=== PATIENT | female | born 1945 | race Hispanic/Latino ===

== ENCOUNTER 2020-01-12 11:15 | Emergency (ER) | payer MEDICARE, OTHER ==
[~2020-01-12] VITALS: Ht 154.9 cm; Wt 71.7 kg
--- NOTE | 2020-01-12 11:31 | NUR ---
PAMELA LUCERO E[employer] OPPORTUNITY SPECIALIST WILL DISCHARGE WITH DERMATOLOGY REFERRAL.
== END 2020-01-12 11:59 | disposition home or self-care (01) ==
LOC: ER 11:15
DX: R59.1 Generalized enlarged lymph nodes (principal); I10 Essential (primary) hypertension
CPT/HCPCS: 99281

== ENCOUNTER 2021-03-24 09:03 | Inpatient (IN) | payer MEDICARE, OTHER ==
[2021-03-24] VITALS (8 sets, daily range): BP systolic 77–99; BP diastolic 56–67
[~2021-03-24] VITALS: Ht 154.9 cm; Wt 58.5 kg
[2021-03-24] MEDS ORDERED: SODIUM CHLORIDE 0.9% 1000ML 1,000 ML IV STA ×2 (09:32→10:15)
[2021-03-24 09:40] LABS: BASOPHILS # (AUTO) 0.1 (0.0-0.1); BASOPHILS % 0.5 % (0.0-1.0); EOSINOPHILS % 0.1 % (0.0-6.0); HEMATOCRIT 26.4 % (34.2-44.1); HEMOGLOBIN 8.8 g/dL (12.0-16.0); LYMPHOCYTES # (AUTO) 0.6 (1.0-3.2); MEAN CORPUSCULAR HEMOGLOBIN 29.6 pg (28-32); MEAN CORPUSCULAR HGB CONC 33.3 g/dL (31-35); MEAN CORPUSCULAR VOLUME 88.9 fL (81-99); MONOCYTES # (AUTO) 0.4 (0.2-0.8); MONOCYTES % 1.9 % (4.4-11.3); NEUTROPHILS # (AUTO) 19.3 (2.1-6.9); NEUTROPHILS % 94.2 % (38.7-80.0); PLATELET COUNT 539 x10e3/uL (140-360); RED BLOOD COUNT 2.97 x10e6/uL (3.6-5.1); RED CELL DISTRIBUTION WIDTH 14.6 % (11.7-14.4)
[2021-03-24 09:53] LABS: INR 1.08; PROTHROMBIN TIME 14.6 seconds (11.9-14.5)
[2021-03-24 09:54] LABS: PARTIAL THROMBOPLASTIN TIME 37.4 seconds (23.8-35.5)
[2021-03-24] MEDS ORDERED: MEROPENEM 1GM 100 ML IV ONE (10:00)
[2021-03-24 10:06] LABS: ALBUMIN 1.3 g/dL (3.5-5.0); ALBUMIN/GLOBULIN RATIO 0.2 (0.8-2.0); ANION GAP 23.6 mmol/L (8-16); CALCIUM 7.4 mg/dL (8.4-10.2); CREATININE, SERUM 1.32 mg/dL (0.57-1.11); POTASSIUM 3.6 mmol/L (3.5-5.1)
[2021-03-24 10:07] LABS: B-TYPE NATRIURETIC PEPTIDE2 182.7 pg/mL (0-100)
[2021-03-24] MEDS ORDERED: DEXTROSE 50% SYRINGE 50 ML IV STA (10:08)
[2021-03-24 10:15] LABS: CREATINE KINASE MB 0.7 ng/mL (0-5.0)
[2021-03-24 10:36] LABS: CLARITY,URINE CLOUDY (CLEAR); COLOR,URINE YELLOW (YELLOW)
[2021-03-24 10:37] LABS: KETONES,URINE NEGATIVE (NEGATIVE); LEUKOCYTE ESTERASE ,URINE NEGATIVE (NEGATIVE); NITRITE,URINE NEGATIVE (NEGATIVE); PROTEIN,URINE DIPSTICK NEGATIVE (NEGATIVE); URINE UROBILINOGEN 0.2 mg/dL (0.2 - 1)
[2021-03-24 10:47] LABS: BAND NEUTROPHILS % (MANUAL) 3 %; LYMPHOCYTES % (MANUAL) 4 % (19-48)
[2021-03-24 10:48] LABS: BLAST CELLS % MANUAL 1; NEUTROPHILS % (MANUAL) 92 % (40-74)
[2021-03-24 10:49] LABS: HYPERSEGMENTED NEUTROPHILS FEW; RBC MORPHOLOGY COMMENT ABNORMAL
[2021-03-24 10:50] LABS: PLATELET ESTIMATE SLIGHTLY INCREASED; PLATELET MORPHOLOGY COMMENT PLATELET SATELITE
[2021-03-24 10:51] LABS: MICROCYTOSIS SLIG; POIKILOCYTOSIS SLIGHT
[2021-03-24 10:53] LABS: ANISOCYTOSIS SLIG
[2021-03-24 10:57] LABS: BACTERIA,URINE MANY /HPF; WBC,URINE (MAN) 21-50 /HPF (0-5)
[2021-03-24 10:58] LABS: EPITHELIAL CELLS,URINE MODERATE /LPF; MUCUS,URINE MANY (RARE)
[2021-03-24] MEDS ORDERED: IOPAMIDOL 370 MG/ML 200 ML INFUS..BTL INJ ONE (11:14)
[2021-03-24] MEDS ORDERED: SODIUM CHLORIDE 0.9% 50ML 50 ML ONE (11:14)
[2021-03-24] MEDS: SODIUM CHLORIDE 0.9% 1000ML 1,000 ML IV SCH ×2 (12:26→12:40)
[2021-03-24] MEDS ORDERED: ONDANSETRON HCL INJ 2MG/ML 2ML 2 MG/ML VIAL IV PRN ×2 (12:30→13:15)
[2021-03-24] MEDS ORDERED: SODIUM CHLORIDE 0.9% 1000ML 1,000 ML IV SCH ×2 (12:30→12:45)
[2021-03-24] MEDS ORDERED: IBUPROFEN200 MG PO (12:51)
[2021-03-24] MEDS ORDERED: TYLENOL EXTRA500 MG PO (12:51)
[2021-03-24] MEDS ORDERED: PLAQUENIL200 MG PO (12:51)
[2021-03-24] MEDS ORDERED: GABAPENTIN100 MG PO (12:51)
[2021-03-24] MEDS ORDERED: METHYLPREDNISOLO4 M1 PO (12:51)
[2021-03-24] MEDS ORDERED: ZESTRIL10 MG PO (12:51)
[2021-03-24] MEDS ORDERED: ASPIRIN81 MG PO (12:51)
[2021-03-24] MEDS ORDERED: CLONIDINE HCL0.1 MG PO (12:52)
[2021-03-24] MEDS ORDERED: ETOMIDATE 2 MG/ML 10 ML INJ IV ONE (12:59)
[2021-03-24] MEDS ORDERED: SEVOFLURANE INHAL SOLN 250 ML PEN BTL ONE (12:59)
[2021-03-24] MEDS ORDERED: POVIDONE IODINE 0.05% 0.05 % ML PO ONE (12:59)
[2021-03-24] MEDS ORDERED: EPHEDRINE SULFATE INJ 50 MG/ML VIAL ONE (12:59)
[2021-03-24] MEDS ORDERED: SUCCINYLCHOLINE CHLORIDE 20 MG/ML 10ML VIAL ONE (12:59)
[2021-03-24] MEDS ORDERED: ROCURONIUM BROMIDE 10 MG/ML 5ML VIAL IV ONE (12:59)
[2021-03-24] MEDS ORDERED: VECURONIUM BROMIDE FOR INJ 20 MG VIAL ONE (13:03)
[2021-03-24] MEDS ORDERED: WATER STERILE 10 ML VIAL ONE (13:03)
[2021-03-24] MEDS ORDERED: MIDAZOLAM HCL 2 MG/2 ML VIAL ONE (13:03)
[2021-03-24] MEDS ORDERED: ACETAMINOPHEN 325 MG TAB PO PRN (13:15)
[2021-03-24] MEDS: MEROPENEM 1GM 100 ML IV SCH ×3 (13:15→23:58)
[2021-03-24] MEDS ORDERED: DOCUSATE SODIUM 100 MG CAP PO PRN (13:15)
[2021-03-24] MEDS ORDERED: LIDOCAINE 4% PATCH TP PRN (13:15)
[2021-03-24] MEDS ORDERED: DEXTROSE 50% SYRINGE 50 ML IV PRN ×2 (13:15→13:45)
[2021-03-24] MEDS ORDERED: SODIUM BICARBONATE 8.4% INJ 50 ML SYR IV STA ×2 (13:16→13:21)
[2021-03-24] MEDS ORDERED: DEXTROSE 50% SYRINGE 50 ML IV ONE (13:30)
[2021-03-24] MEDS ORDERED: HYDRALAZINE HCL 20 MG/ML VIAL IV PRN (13:45)
[2021-03-24] MEDS ORDERED: SODIUM BICARBONATE 8.4% 150 ML in DEXTROSE 5% 1,000 ML IV ONE (14:00)
[2021-03-24] MEDS ORDERED: SODIUM CHLORIDE 0.9% 250ML 250 ML IV ONE (14:00)
[2021-03-24] MEDS ORDERED: METRONIDAZOLE 500MG/NS 100ML 100 ML IV SCH (14:00)
[2021-03-24 15:05] LABS: BASOPHILS % 0.2 % (0.0-1.0); LYMPHOCYTES # (AUTO) 0.5 (1.0-3.2); LYMPHOCYTES % 3.3 % (18.0-39.1); MEAN CORPUSCULAR HEMOGLOBIN 29.3 pg (28-32); MEAN CORPUSCULAR HGB CONC 32.4 g/dL (31-35); MEAN CORPUSCULAR VOLUME 90.6 fL (81-99); MONOCYTES # (AUTO) 0.4 (0.2-0.8); MONOCYTES % 2.2 % (4.4-11.3); NEUTROPHILS # (AUTO) 15.6 (2.1-6.9); NEUTROPHILS % 93.9 % (38.7-80.0); PLATELET COUNT 368 x10e3/uL (140-360); RED BLOOD COUNT 1.91 x10e6/uL (3.6-5.1); RED CELL DISTRIBUTION WIDTH 14.5 % (11.7-14.4)
[2021-03-24 15:10] LABS: HEMATOCRIT 17.3 % (34.2-44.1); HEMOGLOBIN 5.6 g/dL (12.0-16.0)
[2021-03-24] MEDS ORDERED: MORPHINE SULFATE INJ 4 MG/ML INJ 1ML IV PRN (15:15)
[2021-03-24 15:37] LABS: ANISOCYTOSIS SLIGHT; BAND NEUTROPHILS % (MANUAL) 27 %; LYMPHOCYTES % (MANUAL) 5 % (19-48); METAMYELOCYTES % (MANUAL) 2 % (0-0); MONOCYTES % (MANUAL) 7 % (3.4-9.0); MYELOCYTES % (MANUAL) 2 % (0-0); NEUTROPHILS % (MANUAL) 57 % (40-74)
[2021-03-24 15:38] LABS: PLATELET ESTIMATE ADEQUATE; PLATELET MORPHOLOGY COMMENT NORMAL
[2021-03-24 15:56] LABS: BASOPHILS # (AUTO) 0.1 (0.0-0.1); BASOPHILS % 0.4 % (0.0-1.0); HEMATOCRIT 23.6 % (34.2-44.1); HEMOGLOBIN 7.4 g/dL (12.0-16.0); LYMPHOCYTES # (AUTO) 0.7 (1.0-3.2); LYMPHOCYTES % 3.2 % (18.0-39.1); MEAN CORPUSCULAR HGB CONC 31.4 g/dL (31-35); MEAN CORPUSCULAR VOLUME 92.5 fL (81-99); MONOCYTES # (AUTO) 0.5 (0.2-0.8); MONOCYTES % 2.3 % (4.4-11.3); NEUTROPHILS # (AUTO) 19.9 (2.1-6.9); NEUTROPHILS % 93.5 % (38.7-80.0); PLATELET COUNT 385 x10e3/uL (140-360); RED BLOOD COUNT 2.55 x10e6/uL (3.6-5.1); RED CELL DISTRIBUTION WIDTH 15.3 % (11.7-14.4)
[2021-03-24] MEDS: INSULIN REGULAR, HUMAN 100 UNIT/1 ML 3ML VIAL SQ SCH ×2 (16:30→20:01)
[2021-03-24] MEDS ORDERED: SODIUM CHLORIDE 0.9% 500ML 500 ML ONE ×2 (16:35→22:35)
[2021-03-24] MEDS: SODIUM BICARBONATE 8.4% 150 ML in DEXTROSE 5% 1,000 ML IV SCH (17:17)
[2021-03-24 17:45] LABS: BAND NEUTROPHILS % (MANUAL) 35 %; LYMPHOCYTES % (MANUAL) 6 % (19-48); METAMYELOCYTES % (MANUAL) 1 % (0-0); MONOCYTES % (MANUAL) 2 % (3.4-9.0); NEUTROPHILS % (MANUAL) 56 % (40-74)
[2021-03-24 17:47] LABS: PLATELET ESTIMATE ADEQUATE; PLATELET MORPHOLOGY COMMENT NORMAL; RBC MORPHOLOGY COMMENT NORMAL
[2021-03-24 17:55] LABS: TOXIC GRANULATION SLIGHT; VACUOLE,WBC SLIGHT
[2021-03-24] MEDS: SODIUM CHLORIDE 0.9% 250ML IRRIG IR SCH ×2 (18:02→19:58)
[2021-03-24] MEDS: PANTOPRAZOLE 40 MG 10ML VIAL IV SCH (18:33)
[2021-03-24] MEDS: NOREPINEPHRINE INJ 4MG/4ML 8 MG in DEXTROSE 5% 250ML 250 ML IV SCH (18:34)
[2021-03-24] MEDS: METRONIDAZOLE 500MG/NS 100ML 100 ML IV SCH (18:34)
[2021-03-24] MEDS ORDERED: NOREPINEPHRINE 8 MG/D5W 250 ML 250 ML ONE (18:39)
[2021-03-24] MEDS ORDERED: MEROPENEM 1 GM VIAL ONE (22:36)
[2021-03-24] MEDS ORDERED: SODIUM CHLORIDE 0.9% 100 ML ONE (22:38)
[2021-03-24] MEDS ORDERED: MEROPENEM 1GM 100 ML IV SCH (23:00)
[2021-03-25] VITALS (19 sets, daily range): BP systolic 72–158; BP diastolic 35–117
[2021-03-25] MEDS: SODIUM CHLORIDE 0.9% 250ML IRRIG IR SCH ×7 (00:07→23:45)
[2021-03-25] MEDS: SODIUM BICARBONATE 8.4% 150 ML in DEXTROSE 5% 1,000 ML IV SCH ×2 (01:39→09:29)
[2021-03-25] MEDS: METRONIDAZOLE 500MG/NS 100ML 100 ML IV SCH ×3 (01:39→17:21)
[2021-03-25 02:12] LABS: CREATINE KINASE MB 2.2 ng/mL (0-5.0)
[2021-03-25] MEDS ORDERED: VASOPRESSIN 60 UNIT in DEXTROSE 5% 50ML 57 ML IV STA (05:11)
[2021-03-25 05:40] LABS: ABG HCO3 22 mmol/L (22-26); ABG PCO2 57 mmHg (35-45); ABG PO2 102 mmHg (80-105); ABG TCO2 24
[2021-03-25 05:55] LABS: BASOPHILS % 0.1 % (0.0-1.0); HEMOGLOBIN 11.9 g/dL (12.0-16.0); LYMPHOCYTES # (AUTO) 0.6 (1.0-3.2); LYMPHOCYTES % 1.5 % (18.0-39.1); MEAN CORPUSCULAR HEMOGLOBIN 28.1 pg (28-32); MEAN CORPUSCULAR HGB CONC 32.2 g/dL (31-35); MEAN CORPUSCULAR VOLUME 87.5 fL (81-99); MONOCYTES # (AUTO) 0.5 (0.2-0.8); MONOCYTES % 1.2 % (4.4-11.3); NEUTROPHILS # (AUTO) 35.2 (2.1-6.9); NEUTROPHILS % 94.8 % (38.7-80.0); PLATELET COUNT 516 x10e3/uL (140-360); RED BLOOD COUNT 4.23 x10e6/uL (3.6-5.1); RED CELL DISTRIBUTION WIDTH 18.1 % (11.7-14.4)
[2021-03-25] MEDS ORDERED: MIDAZOLAM HCL 2 MG/2 ML VIAL IV PRN (06:30)
[2021-03-25] MEDS ORDERED: FENTANYL CITRATE/PF 100MCG/2 ML INJ IV PRN (06:30)
[2021-03-25] MEDS ORDERED: FUROSEMIDE INJ 10 MG/ML 4 ML VIAL IV ONE ×2 (06:45→13:30)
[2021-03-25 06:52] LABS: ALBUMIN/GLOBULIN RATIO 0.2 (0.8-2.0); ANION GAP 18.3 mmol/L (8-16); CREATININE, SERUM 1.36 mg/dL (0.57-1.11); POTASSIUM 3.3 mmol/L (3.5-5.1)
[2021-03-25 06:55] LABS: CALCIUM 6.3 mg/dL (8.4-10.2)
[2021-03-25] MEDS ORDERED: SODIUM CHLORIDE 0.9% 1000ML 1,000 ML IV ONE ×2 (07:15)
[2021-03-25] MEDS ORDERED: NALOXONE HCL INJ 0.4 MG/ML AMP IV ONE (07:15)
[2021-03-25] MEDS ORDERED: SODIUM CHLORIDE 0.9% 1000ML 1,000 ML ONE (07:19)
[2021-03-25] MEDS ORDERED: NALOXONE HCL INJ 0.4 MG/ML AMP ONE (07:22)
[2021-03-25] MEDS ORDERED: NALOXONE HCL 2MG/2 ML SYRINGE ONE (07:23)
[2021-03-25] MEDS ORDERED: CALCIUM CHLORIDE 10% 1.36 MEQ/ML 10ML SYR IV STA (07:25)
[2021-03-25] MEDS ORDERED: SODIUM CHLORIDE 0.9% 1000ML 1,000 ML IV SCH ×2 (07:30→08:30)
[2021-03-25] MEDS ORDERED: PANTOPRAZOLE SOD 40 MG TABEC PO SCH (07:30)
[2021-03-25] MEDS ORDERED: POTASSIUM CHLORIDE 10MEQ/100ML 100 ML IV ONE (07:30)
[2021-03-25] MEDS: INSULIN REGULAR, HUMAN 100 UNIT/1 ML 3ML VIAL SQ SCH ×4 (07:30→20:49)
[2021-03-25 07:47] LABS: ABG HCO3 18 mmol/L (22-26); ABG PCO2 35 mmHg (35-45); ABG PH 7.33 (7.35-7.45); ABG PO2 344 mmHg (80-105)
[2021-03-25 07:48] LABS: ABG TCO2 19
[2021-03-25 08:26] LABS: ANION GAP 18.3 mmol/L (8-16); CREATININE, SERUM 1.34 mg/dL (0.57-1.11); MAGNESIUM 1.7 MG/DL (1.3-2.1); PHOSPHORUS 6.4 MG/DL (2.3-4.7); POTASSIUM 3.3 mmol/L (3.5-5.1)
[2021-03-25 08:33] LABS: CREATINE KINASE MB 2.1 ng/mL (0-5.0)
[2021-03-25 08:44] LABS: THYROID STIMULATING HORMONE 1.728 uIU/mL (0.350-4.940)
[2021-03-25 08:53] LABS: CALCIUM 6.3 mg/dL (8.4-10.2)
[2021-03-25] MEDS: PANTOPRAZOLE 40 MG 10ML VIAL IV SCH ×2 (09:29→17:21)
[2021-03-25] MEDS ORDERED: POTASSIUM CHLORIDE 10MEQ/100ML 100 ML ONE (09:43)
[2021-03-25] MEDS ORDERED: METOPROLOL TARTRATE INJ 1 MG/ML VIAL ONE (10:22)
[2021-03-25] MEDS ORDERED: AMIODARONE 900MG 0 ML IV ONE (10:51)
[2021-03-25] MEDS ORDERED: AMIODARONE HCL 100 ML IV ONE (10:51)
[2021-03-25] MEDS ORDERED: AMIODARONE 900MG 500 ML IV ONE (10:51)
[2021-03-25] MEDS ORDERED: METOPROLOL TARTRATE INJ 1 MG/ML VIAL IV ONE ×2 (11:00)
[2021-03-25] MEDS ORDERED: AMIODARONE HCL 150 MG/100 ML BAG IV ONE (11:00)
[2021-03-25] MEDS: AMIODARONE 900MG 500 ML IV SCH (11:16)
[2021-03-25] MEDS ORDERED: METOPROLOL TARTRATE INJ 1 MG/ML VIAL IV PRN (11:30)
[2021-03-25] MEDS ORDERED: HYDROCORTISONE SOD SUCCINATE 100 MG VIAL IV SCH (12:00)
[2021-03-25 12:09] LABS: BAND NEUTROPHILS % (MANUAL) 21 %; LYMPHOCYTES % (MANUAL) 2 % (19-48); METAMYELOCYTES % (MANUAL) 12 % (0-0); MONOCYTES % (MANUAL) 3 % (3.4-9.0); MYELOCYTES % (MANUAL) 11 % (0-0); NEUTROPHILS % (MANUAL) 51 % (40-74)
[2021-03-25 12:12] LABS: PLATELET ESTIMATE MARKEDLY INCREASED; PLATELET MORPHOLOGY COMMENT FEW LARGE
[2021-03-25 12:14] LABS: RBC MORPHOLOGY COMMENT NORMAL; TOXIC GRANULATION MODERATE
[2021-03-25] MEDS: HYDROCORTISONE SOD SUCCINATE 100 MG VIAL IV SCH ×2 (14:00→22:45)
[2021-03-25 15:15] LABS: HEMATOCRIT 34.3 % (34.2-44.1); HEMOGLOBIN 11.5 g/dL (12.0-16.0)
[2021-03-25 15:21] LABS: ABG PCO2 25 mmHg (35-45); ABG PH 7.32 (7.35-7.45)
[2021-03-25 15:22] LABS: ABG HCO3 13 mmol/L (22-26); ABG PO2 125 mmHg (80-105); ABG TCO2 13
[2021-03-25 15:38] LABS: ANION GAP 22.9 mmol/L (8-16); CREATININE, SERUM 1.44 mg/dL (0.57-1.11); POTASSIUM 3.9 mmol/L (3.5-5.1)
[2021-03-25 15:56] LABS: CALCIUM 6.6 mg/dL (8.4-10.2)
[2021-03-25] MEDS ORDERED: VASOPRESSIN 60 UNIT in DEXTROSE 5% 50ML 57 ML IV PRN (16:00)
[2021-03-25] MEDS ORDERED: CALCIUM CHLORIDE 13.6 MEQ in SODIUM CHLORIDE 0.9% 100 ML 100 ML IV ONE (17:00)
[2021-03-25] MEDS: NOREPINEPHRINE INJ 4MG/4ML 8 MG in DEXTROSE 5% 250ML 250 ML IV SCH (17:22)
[2021-03-25] MEDS: MEROPENEM 500MG 500 MG in SODIUM CHLORIDE 0.9% 50ML 50 ML IV SCH (19:29)
[2021-03-25] MEDS: CENTRAL TPN FORMULA 1 BAG IV SCH (20:48)
[2021-03-26] VITALS (26 sets, daily range): BP systolic 87–140; BP diastolic 58–80
[2021-03-26] MEDS: METRONIDAZOLE 500MG/NS 100ML 100 ML IV SCH ×3 (01:42→17:54)
[2021-03-26] MEDS: SODIUM CHLORIDE 0.9% 250ML IRRIG IR SCH ×6 (03:44→23:15)
[2021-03-26 05:38] LABS: BASOPHILS % 0.1 % (0.0-1.0); HEMATOCRIT 30.7 % (34.2-44.1); HEMOGLOBIN 10.6 g/dL (12.0-16.0); LYMPHOCYTES # (AUTO) 0.6 (1.0-3.2); LYMPHOCYTES % 1.6 % (18.0-39.1); MEAN CORPUSCULAR HEMOGLOBIN 28.5 pg (28-32); MEAN CORPUSCULAR HGB CONC 34.5 g/dL (31-35); MEAN CORPUSCULAR VOLUME 82.5 fL (81-99); MONOCYTES # (AUTO) 0.3 (0.2-0.8); MONOCYTES % 0.8 % (4.4-11.3); NEUTROPHILS # (AUTO) 37.1 (2.1-6.9); NEUTROPHILS % 94.4 % (38.7-80.0); PLATELET COUNT 330 x10e3/uL (140-360); RED BLOOD COUNT 3.72 x10e6/uL (3.6-5.1); RED CELL DISTRIBUTION WIDTH 17.7 % (11.7-14.4)
[2021-03-26] MEDS: HYDROCORTISONE SOD SUCCINATE 100 MG VIAL IV SCH ×3 (05:51→22:09)
[2021-03-26 06:05] LABS: ALBUMIN 0.8 g/dL (3.5-5.0); ALBUMIN/GLOBULIN RATIO 0.2 (0.8-2.0); ANION GAP 20.6 mmol/L (8-16); CREATININE, SERUM 1.51 mg/dL (0.57-1.11); MAGNESIUM 1.8 MG/DL (1.3-2.1); POTASSIUM 3.6 mmol/L (3.5-5.1)
[2021-03-26 06:08] LABS: CALCIUM 6.6 mg/dL (8.4-10.2)
[2021-03-26] MEDS: INSULIN REGULAR, HUMAN 100 UNIT/1 ML 3ML VIAL SQ SCH ×4 (07:30→22:09)
[2021-03-26 08:02] LABS: BAND NEUTROPHILS % (MANUAL) 3 %; LYMPHOCYTES % (MANUAL) 2 % (19-48); MONOCYTES % (MANUAL) 1 % (3.4-9.0); NEUTROPHILS % (MANUAL) 93 % (40-74)
[2021-03-26 08:03] LABS: ANISOCYTOSIS SLIGHT; PLATELET ESTIMATE ADEQUATE; PLATELET MORPHOLOGY COMMENT FEW LARGE; RBC MORPHOLOGY COMMENT NORMAL
[2021-03-26] MEDS: PANTOPRAZOLE 40 MG 10ML VIAL IV SCH ×2 (08:58→17:17)
[2021-03-26] MEDS: PROPOFOL IV EMULSION 10MG/ML 100 ML IV PRN (11:26)
[2021-03-26 12:36] LABS: ABG HCO3 18 mmol/L (22-26); ABG PCO2 33 mmHg (35-45); ABG PH 7.34 (7.35-7.45); ABG PO2 130 mmHg (80-105); ABG TCO2 19
[2021-03-26] MEDS: AMIODARONE 900MG 500 ML IV SCH (14:02)
[2021-03-26] MEDS: NOREPINEPHRINE INJ 4MG/4ML 8 MG in DEXTROSE 5% 250ML 250 ML IV SCH (14:17)
[2021-03-26] MEDS ORDERED: MAGNESIUM SULF 1GRAM/DEXTROSE 100 ML IV ONE (14:35)
[2021-03-26] MEDS ORDERED: FUROSEMIDE INJ 10 MG/ML 4 ML VIAL IV ONE (14:45)
[2021-03-26] MEDS ORDERED: CALCIUM CHLORIDE 13.6 MEQ in SODIUM CHLORIDE 0.9% 100 ML 100 ML IV ONE ×2 (15:00→16:00)
[2021-03-26] MEDS: FUROSEMIDE INJ 100 MG in SODIUM CHLORIDE 0.9% 100 ML 90 ML IV SCH (15:01)
[2021-03-26] MEDS: MEROPENEM 500MG 500 MG in SODIUM CHLORIDE 0.9% 50ML 50 ML IV SCH (17:17)
[2021-03-26 17:58] LABS: ANION GAP 18.1 mmol/L (8-16); CREATININE, SERUM 1.51 mg/dL (0.57-1.11); POTASSIUM 4.1 mmol/L (3.5-5.1)
[2021-03-26 18:02] LABS: CALCIUM 6.4 mg/dL (8.4-10.2)
[2021-03-26] MEDS ORDERED: CALCIUM GLUCONATE 10% INJ 9.3 MEQ in SODIUM CHLORIDE 0.9% 100 ML 100 ML IV ONE (18:45)
[2021-03-26] MEDS: CENTRAL TPN FORMULA 1 BAG IV SCH (20:30)
[2021-03-27] VITALS (26 sets, daily range): BP systolic 74–130; BP diastolic 52–75
[2021-03-27] MEDS: METRONIDAZOLE 500MG/NS 100ML 100 ML IV SCH ×2 (02:03→09:30)
[2021-03-27] MEDS: SODIUM CHLORIDE 0.9% 250ML IRRIG IR SCH ×6 (03:15→23:27)
[2021-03-27 06:10] LABS: ALBUMIN 0.8 g/dL (3.5-5.0); ALBUMIN/GLOBULIN RATIO 0.2 (0.8-2.0); ANION GAP 16.8 mmol/L (8-16); CREATININE, SERUM 1.49 mg/dL (0.57-1.11); POTASSIUM 3.8 mmol/L (3.5-5.1)
[2021-03-27 06:15] LABS: CALCIUM 6.7 mg/dL (8.4-10.2)
[2021-03-27] MEDS: HYDROCORTISONE SOD SUCCINATE 100 MG VIAL IV SCH ×3 (06:20→21:12)
[2021-03-27 06:28] LABS: BASOPHILS # (AUTO) 0.2 (0.0-0.1); BASOPHILS % 0.6 % (0.0-1.0); HEMATOCRIT 26.6 % (34.2-44.1); LYMPHOCYTES # (AUTO) 0.6 (1.0-3.2); LYMPHOCYTES % 2.2 % (18.0-39.1); MEAN CORPUSCULAR HGB CONC 33.5 g/dL (31-35); MEAN CORPUSCULAR VOLUME 83.6 fL (81-99); MONOCYTES # (AUTO) 0.7 (0.2-0.8); MONOCYTES % 2.7 % (4.4-11.3); NEUTROPHILS # (AUTO) 24.9 (2.1-6.9); NEUTROPHILS % 91.9 % (38.7-80.0); RED BLOOD COUNT 3.18 x10e6/uL (3.6-5.1); RED CELL DISTRIBUTION WIDTH 17.8 % (11.7-14.4)
[2021-03-27 06:38] LABS: HEMOGLOBIN 8.9 g/dL (12.0-16.0); PLATELET COUNT 184 x10e3/uL (140-360)
[2021-03-27 07:29] LABS: BAND NEUTROPHILS % (MANUAL) 3 %; LYMPHOCYTES % (MANUAL) 2 % (19-48); NEUTROPHILS % (MANUAL) 95 % (40-74)
[2021-03-27 07:30] LABS: ANISOCYTOSIS SLIGHT; PLATELET ESTIMATE ADEQUATE; PLATELET MORPHOLOGY COMMENT NORMAL; RBC MORPHOLOGY COMMENT NORMAL; TOXIC GRANULATION SLIGHT
[2021-03-27] MEDS: INSULIN REGULAR, HUMAN 100 UNIT/1 ML 3ML VIAL SQ SCH ×4 (07:58→22:40)
[2021-03-27] MEDS: PANTOPRAZOLE 40 MG 10ML VIAL IV SCH ×2 (08:45→17:00)
[2021-03-27 11:20] LABS: ABG HCO3 19 mmol/L (22-26); ABG PCO2 41 mmHg (35-45); ABG PH 7.37 (7.35-7.45); ABG PO2 112 mmHg (80-105); ABG TCO2 20
[2021-03-27] MEDS: FUROSEMIDE INJ 100 MG in SODIUM CHLORIDE 0.9% 100 ML 90 ML IV SCH (11:23)
[2021-03-27] MEDS ORDERED: VANCOMYCIN 750MG/NS 150ML IVPB 150 ML IV SCH (12:00)
[2021-03-27] MEDS ORDERED: CALCIUM GLUCONATE 10% INJ 13.95 MEQ in SODIUM CHLORIDE 0.9% 100 ML 100 ML IV ONE (13:00)
[2021-03-27] MEDS: CENTRAL TPN FORMULA 1 BAG IV SCH (20:19)
[2021-03-27] MEDS: PIPERACILLIN/TAZOBAC 3.375 GM in SODIUM CHLORIDE 0.9% 50ML 50 ML IV SCH (21:12)
[2021-03-27] MEDS: AMIODARONE 900MG 500 ML IV SCH (21:12)
[2021-03-27] MEDS ORDERED: PIPER-TAZ 3.375 GM 50 ML IV SCH (22:00)
[2021-03-28] VITALS (26 sets, daily range): BP systolic 97–145; BP diastolic 57–78
[2021-03-28] MEDS: FUROSEMIDE INJ 100 MG in SODIUM CHLORIDE 0.9% 100 ML 90 ML IV SCH (00:19)
[2021-03-28] MEDS: SODIUM CHLORIDE 0.9% 250ML IRRIG IR SCH ×6 (04:06→23:15)
[2021-03-28] MEDS: HYDROCORTISONE SOD SUCCINATE 100 MG VIAL IV SCH ×2 (05:15→20:27)
[2021-03-28] MEDS: PIPERACILLIN/TAZOBAC 3.375 GM in SODIUM CHLORIDE 0.9% 50ML 50 ML IV SCH ×3 (05:15→22:00)
[2021-03-28 06:28] LABS: BASOPHILS % 0.1 % (0.0-1.0); HEMATOCRIT 28.1 % (34.2-44.1); HEMOGLOBIN 9.4 g/dL (12.0-16.0); LYMPHOCYTES # (AUTO) 0.4 (1.0-3.2); LYMPHOCYTES % 2.1 % (18.0-39.1); MEAN CORPUSCULAR HEMOGLOBIN 27.8 pg (28-32); MEAN CORPUSCULAR HGB CONC 33.5 g/dL (31-35); MEAN CORPUSCULAR VOLUME 83.1 fL (81-99); MONOCYTES # (AUTO) 0.9 (0.2-0.8); MONOCYTES % 4.1 % (4.4-11.3); NEUTROPHILS % 91.3 % (38.7-80.0); PLATELET COUNT 132 x10e3/uL (140-360); RED BLOOD COUNT 3.38 x10e6/uL (3.6-5.1); RED CELL DISTRIBUTION WIDTH 18.1 % (11.7-14.4)
[2021-03-28 06:58] LABS: ALBUMIN 0.9 g/dL (3.5-5.0); ALBUMIN/GLOBULIN RATIO 0.2 (0.8-2.0); ANION GAP 16.6 mmol/L (8-16); CREATININE, SERUM 1.37 mg/dL (0.57-1.11); POTASSIUM 3.6 mmol/L (3.5-5.1)
[2021-03-28 07:20] LABS: MAGNESIUM 2.7 MG/DL (1.3-2.1); PHOSPHORUS 4.8 MG/DL (2.3-4.7)
[2021-03-28] MEDS: INSULIN REGULAR, HUMAN 100 UNIT/1 ML 3ML VIAL SQ SCH ×4 (07:59→20:37)
[2021-03-28 08:38] LABS: LYMPHOCYTES % (MANUAL) 4 % (19-48); MONOCYTES % (MANUAL) 5 % (3.4-9.0); NEUTROPHILS % (MANUAL) 91 % (40-74); NUCLEATED RED BLOOD CELLS 1
[2021-03-28 08:39] LABS: ANISOCYTOSIS SLIGHT; POLYCHROMASIA FEW
[2021-03-28 08:40] LABS: PLATELET ESTIMATE ADEQUATE; PLATELET MORPHOLOGY COMMENT NORMAL; RBC MORPHOLOGY COMMENT NORMAL
[2021-03-28] MEDS: PANTOPRAZOLE 40 MG 10ML VIAL IV SCH ×2 (08:48→16:50)
[2021-03-28] MEDS ORDERED: SODIUM BICARBONATE 8.4% INJ 50 ML SYR IV ONE (09:25)
[2021-03-28] MEDS: AMIODARONE 900MG 500 ML IV SCH (11:00)
[2021-03-28 11:04] LABS: ABG HCO3 17 mmol/L (22-26); ABG PCO2 41 mmHg (35-45); ABG PH 7.24 (7.35-7.45); ABG PO2 93 mmHg (80-105); ABG TCO2 18
[2021-03-28] MEDS ORDERED: CALCIUM CHLORIDE 13.6 MEQ in SODIUM CHLORIDE 0.9% 100 ML 100 ML IV ONE (14:00)
[2021-03-28 16:57] LABS: ANION GAP 16.5 mmol/L (8-16); CALCIUM 7.4 mg/dL (8.4-10.2); CREATININE, SERUM 1.24 mg/dL (0.57-1.11); POTASSIUM 3.5 mmol/L (3.5-5.1)
[2021-03-28] MEDS: CENTRAL TPN FORMULA 1 BAG IV SCH (20:12)
[2021-03-28] MEDS ORDERED: MORPHINE SULFATE INJ 2 MG/ML SYR IV PRN (20:30)
[2021-03-29] VITALS (26 sets, daily range): BP systolic 87–156; BP diastolic 54–81
[2021-03-29] MEDS: AMIODARONE 900MG 500 ML IV SCH (02:35)
[2021-03-29] MEDS: FUROSEMIDE INJ 100 MG in SODIUM CHLORIDE 0.9% 100 ML 90 ML IV SCH ×3 (04:08→12:21)
[2021-03-29] MEDS: SODIUM CHLORIDE 0.9% 250ML IRRIG IR SCH ×6 (04:08→23:15)
[2021-03-29 04:42] LABS: BASOPHILS # (AUTO) 0.1 (0.0-0.1); BASOPHILS % 0.6 % (0.0-1.0); HEMOGLOBIN 8.8 g/dL (12.0-16.0); LYMPHOCYTES # (AUTO) 0.7 (1.0-3.2); LYMPHOCYTES % 3.1 % (18.0-39.1); MEAN CORPUSCULAR HEMOGLOBIN 28.1 pg (28-32); MEAN CORPUSCULAR HGB CONC 33.8 g/dL (31-35); MEAN CORPUSCULAR VOLUME 83.1 fL (81-99); MONOCYTES # (AUTO) 1.5 (0.2-0.8); MONOCYTES % 6.8 % (4.4-11.3); NEUTROPHILS # (AUTO) 18.7 (2.1-6.9); NEUTROPHILS % 87.2 % (38.7-80.0); PLATELET COUNT 112 x10e3/uL (140-360); RED BLOOD COUNT 3.13 x10e6/uL (3.6-5.1); RED CELL DISTRIBUTION WIDTH 17.8 % (11.7-14.4)
[2021-03-29 05:02] LABS: ALBUMIN/GLOBULIN RATIO 0.2 (0.8-2.0); CREATININE, SERUM 1.16 mg/dL (0.57-1.11)
[2021-03-29] MEDS: PIPERACILLIN/TAZOBAC 3.375 GM in SODIUM CHLORIDE 0.9% 50ML 50 ML IV SCH ×3 (06:03→22:00)
[2021-03-29 07:20] LABS: LYMPHOCYTES % (MANUAL) 3 % (19-48); MONOCYTES % (MANUAL) 3 % (3.4-9.0); NEUTROPHILS % (MANUAL) 94 % (40-74)
[2021-03-29 07:21] LABS: ANISOCYTOSIS SLIGHT; PLATELET ESTIMATE SLIGHTLY DECREASED; PLATELET MORPHOLOGY COMMENT NORMAL; RBC MORPHOLOGY COMMENT NORMAL
[2021-03-29] MEDS: INSULIN REGULAR, HUMAN 100 UNIT/1 ML 3ML VIAL SQ SCH ×4 (07:41→21:00)
[2021-03-29] MEDS: HYDROCORTISONE SOD SUCCINATE 100 MG VIAL IV SCH ×2 (08:15→21:00)
[2021-03-29] MEDS: PANTOPRAZOLE 40 MG 10ML VIAL IV SCH ×2 (08:15→17:23)
[2021-03-29 09:39] LABS: ABG HCO3 20 mmol/L (22-26); ABG PCO2 45 mmHg (35-45); ABG PH 7.26 (7.35-7.45); ABG PO2 110 mmHg (80-105); ABG TCO2 22
[2021-03-29] MEDS: SODIUM BICARBONATE 8.4% 150 ML in DEXTROSE 5% 1,000 ML IV SCH (10:57)
[2021-03-29] MEDS ORDERED: POTASSIUM CHLORIDE 20 MEQ TAB CR PO ONE (14:28)
[2021-03-29] MEDS ORDERED: KCL 20 MEQ PACKET/ ORAL SOLN NG ONE (16:15)
[2021-03-29] MEDS: ACETAMINOPHEN 325 MG TAB PO PRN (16:15)
[2021-03-29] MEDS: CENTRAL TPN FORMULA 1 BAG IV SCH (19:36)
[2021-03-30] VITALS (27 sets, daily range): BP systolic 72–122; BP diastolic 50–93
[2021-03-30] MEDS: SODIUM CHLORIDE 0.9% 250ML IRRIG IR SCH ×5 (03:15→21:03)
[2021-03-30] MEDS: FUROSEMIDE INJ 100 MG in SODIUM CHLORIDE 0.9% 100 ML 90 ML IV SCH ×2 (05:53→08:17)
[2021-03-30] MEDS: PIPERACILLIN/TAZOBAC 3.375 GM in SODIUM CHLORIDE 0.9% 50ML 50 ML IV SCH ×3 (05:53→21:38)
[2021-03-30 06:48] LABS: BASOPHILS # (AUTO) 0.2 (0.0-0.1); BASOPHILS % 0.6 % (0.0-1.0); HEMATOCRIT 27.4 % (34.2-44.1); LYMPHOCYTES # (AUTO) 0.8 (1.0-3.2); LYMPHOCYTES % 2.7 % (18.0-39.1); MEAN CORPUSCULAR HGB CONC 32.8 g/dL (31-35); MEAN CORPUSCULAR VOLUME 85.1 fL (81-99); MONOCYTES # (AUTO) 0.9 (0.2-0.8); MONOCYTES % 3.2 % (4.4-11.3); NEUTROPHILS # (AUTO) 25.4 (2.1-6.9); NEUTROPHILS % 90.3 % (38.7-80.0); PLATELET COUNT 119 x10e3/uL (140-360); RED BLOOD COUNT 3.22 x10e6/uL (3.6-5.1); RED CELL DISTRIBUTION WIDTH 18.5 % (11.7-14.4)
[2021-03-30 07:06] LABS: ALBUMIN 0.9 g/dL (3.5-5.0); ALBUMIN/GLOBULIN RATIO 0.2 (0.8-2.0); ANION GAP 16.8 mmol/L (8-16); CALCIUM 7.1 mg/dL (8.4-10.2); CREATININE, SERUM 1.07 mg/dL (0.57-1.11)
[2021-03-30 07:10] LABS: POTASSIUM 2.8 mmol/L (3.5-5.1)
[2021-03-30 07:35] LABS: CALCIUM IONIZED 1.1 mmol/L (1.09-1.30)
[2021-03-30 07:38] LABS: MAGNESIUM 2.6 MG/DL (1.3-2.1)
[2021-03-30 07:49] LABS: BAND NEUTROPHILS % (MANUAL) 5 %; LYMPHOCYTES % (MANUAL) 7 % (19-48); METAMYELOCYTES % (MANUAL) 2 % (0-0); MONOCYTES % (MANUAL) 6 % (3.4-9.0); NEUTROPHILS % (MANUAL) 80 % (40-74)
[2021-03-30 07:50] LABS: PLATELET ESTIMATE SLIGHTLY DECREASED; PLATELET MORPHOLOGY COMMENT NORMAL; RBC MORPHOLOGY COMMENT NORMAL; TOXIC GRANULATION MODERATE
[2021-03-30] MEDS ORDERED: POTASSIUM CHLORIDE 20MEQ/100ML 200 ML IV PRN (08:00)
[2021-03-30] MEDS: INSULIN REGULAR, HUMAN 100 UNIT/1 ML 3ML VIAL SQ SCH ×4 (08:17→21:24)
[2021-03-30] MEDS: PANTOPRAZOLE 40 MG 10ML VIAL IV SCH ×2 (08:18→18:33)
[2021-03-30] MEDS: SODIUM BICARBONATE 8.4% 150 ML in DEXTROSE 5% 1,000 ML IV SCH (08:24)
[2021-03-30] MEDS: HYDROCORTISONE SOD SUCCINATE 100 MG VIAL IV SCH ×2 (08:24→21:06)
[2021-03-30] MEDS: AMIODARONE 900MG 500 ML IV SCH (08:24)
[2021-03-30] MEDS ORDERED: FENTANYL CITRATE/PF 100MCG/2 ML INJ ONE (13:18)
[2021-03-30] MEDS ORDERED: MIDAZOLAM HCL 2 MG/2 ML VIAL ONE (13:18)
[2021-03-30] MEDS ORDERED: SODIUM CHLORIDE 0.9% 1000ML 1,000 ML IV SCH (17:30)
[2021-03-30] MEDS ORDERED: ATROPINE SULFATE 0.1 MG/ML 10ML SYR ONE (17:54)
[2021-03-30] MEDS ORDERED: EPINEPHRINE HCL SYRINGE ONE (17:54)
[2021-03-30] MEDS ORDERED: PROPOFOL IV EMULSION 10 MG/ML 20 ML VIAL ONE (19:17)
[2021-03-30] MEDS ORDERED: PHENYLEPHRINE HCL 1% 10 MG/ML VIAL ONE (19:17)
[2021-03-30] MEDS ORDERED: LIDOCAINE HCL 2% LOCAL INJ 5 ML SDV VIAL INJ ONE (19:17)
[2021-03-30] MEDS ORDERED: POVIDONE IODINE 0.05% 0.05 % ML PO ONE (19:17)
[2021-03-30] MEDS ORDERED: EPHEDRINE SULFATE INJ 50 MG/ML VIAL ONE (19:17)
[2021-03-30] MEDS ORDERED: ROCURONIUM BROMIDE 10 MG/ML 5ML VIAL IV ONE (19:17)
[2021-03-30] MEDS ORDERED: SEVOFLURANE INHAL SOLN 250 ML PEN BTL ONE (19:17)
[2021-03-30] MEDS ORDERED: VASOPRESSIN 60 UNIT in DEXTROSE 5% 50ML 57 ML IV PRN (19:30)
[2021-03-30 19:58] LABS: ABG HCO3 21 mmol/L (22-26); ABG PCO2 55 mmHg (35-45); ABG PH 7.18 (7.35-7.45); ABG PO2 42 mmHg (80-105); ABG TCO2 23
[2021-03-30] MEDS ORDERED: SODIUM BICARBONATE 8.4% INJ 50 ML SYR IV STA (19:58)
[2021-03-30] MEDS ORDERED: LACTATED RINGER'S 1,000 ML INJ ONE (20:00)
[2021-03-30] MEDS: CENTRAL TPN FORMULA 1 BAG IV SCH (21:02)
[2021-03-30 23:04] LABS: BASOPHILS # (AUTO) 0.1 (0.0-0.1); BASOPHILS % 0.1 % (0.0-1.0); HEMATOCRIT 25.8 % (34.2-44.1); HEMOGLOBIN 8.2 g/dL (12.0-16.0); LYMPHOCYTES # (AUTO) 2.8 (1.0-3.2); LYMPHOCYTES % 6.5 % (18.0-39.1); MEAN CORPUSCULAR HEMOGLOBIN 28.1 pg (28-32); MEAN CORPUSCULAR HGB CONC 31.8 g/dL (31-35); MEAN CORPUSCULAR VOLUME 88.4 fL (81-99); MONOCYTES # (AUTO) 1.2 (0.2-0.8); MONOCYTES % 2.8 % (4.4-11.3); NEUTROPHILS # (AUTO) 35.9 (2.1-6.9); NEUTROPHILS % 84.3 % (38.7-80.0); PLATELET COUNT 140 x10e3/uL (140-360); RED BLOOD COUNT 2.92 x10e6/uL (3.6-5.1); RED CELL DISTRIBUTION WIDTH 19.4 % (11.7-14.4)
[2021-03-30 23:21] LABS: BLOOD UREA NITROGEN 109 mg/dL (7-26); BUN/CREATININE RATIO 121 (6-25); CALCIUM 7.3 mg/dL (8.4-10.2); CARBON DIOXIDE 14 mmol/L (22-29); CHLORIDE 113 mmol/L (98-107); CREATINE KINASE 27 IU/L (29-168); EST GLOMERULAR FILTRATION RATE > 60 ML/MIN (60-); GLUCOSE 215 mg/dL (74-118); SODIUM 141 mmol/L (136-145)
[2021-03-30 23:47] LABS: ABG HCO3 15 mmol/L (22-26); ABG PCO2 28 mmHg (35-45); ABG PH 7.33 (7.35-7.45); ABG PO2 74 mmHg (80-105); ABG TCO2 16
[2021-03-31] VITALS (57 sets, daily range): BP systolic 72–139; BP diastolic 48–111
[2021-03-31] MEDS ORDERED: NOREPINEPHRINE INJ 4MG/4ML 8 MG in DEXTROSE 5% 250ML 250 ML IV PRN (00:30)
[2021-03-31] MEDS ORDERED: NOREPINEPHRINE 8 MG/D5W 250 ML 250 ML ONE (00:35)
[2021-03-31] MEDS: SODIUM CHLORIDE 0.9% 250ML IRRIG IR SCH ×7 (00:52→23:38)
[2021-03-31] MEDS: PIPERACILLIN/TAZOBAC 3.375 GM in SODIUM CHLORIDE 0.9% 50ML 50 ML IV SCH (06:00)
[2021-03-31 07:11] LABS: BASOPHILS # (AUTO) 0.1 (0.0-0.1); BASOPHILS % 0.1 % (0.0-1.0); HEMATOCRIT 29.6 % (34.2-44.1); HEMOGLOBIN 9.6 g/dL (12.0-16.0); LYMPHOCYTES # (AUTO) 1.5 (1.0-3.2); LYMPHOCYTES % 2.3 % (18.0-39.1); MEAN CORPUSCULAR HGB CONC 32.4 g/dL (31-35); MEAN CORPUSCULAR VOLUME 86.3 fL (81-99); MONOCYTES # (AUTO) 2.1 (0.2-0.8); MONOCYTES % 3.2 % (4.4-11.3); NEUTROPHILS # (AUTO) 59.2 (2.1-6.9); NEUTROPHILS % 88.3 % (38.7-80.0); PLATELET COUNT 197 x10e3/uL (140-360); RED BLOOD COUNT 3.43 x10e6/uL (3.6-5.1); RED CELL DISTRIBUTION WIDTH 19.5 % (11.7-14.4)
[2021-03-31] MEDS: INSULIN REGULAR, HUMAN 100 UNIT/1 ML 3ML VIAL SQ SCH ×4 (07:30→21:51)
[2021-03-31 07:35] LABS: ALANINE AMINOTRANSFERASE 12 IU/L (0-55); ALBUMIN 0.8 g/dL (3.5-5.0); ALBUMIN/GLOBULIN RATIO 0.2 (0.8-2.0); ALKALINE PHOSPHATASE 217 IU/L (40-150); ANION GAP 19.1 mmol/L (8-16); BLOOD UREA NITROGEN 109 mg/dL (7-26); BUN/CREATININE RATIO 122 (6-25); CALCIUM 7.1 mg/dL (8.4-10.2); CARBON DIOXIDE 17 mmol/L (22-29); CHLORIDE 110 mmol/L (98-107); CREATININE, SERUM 0.89 mg/dL (0.57-1.11); EST GLOMERULAR FILTRATION RATE > 60 ML/MIN (60-); POTASSIUM 4.1 mmol/L (3.5-5.1); SODIUM 142 mmol/L (136-145)
[2021-03-31 07:42] LABS: GLUCOSE 57 mg/dL (74-118)
[2021-03-31] MEDS ORDERED: CEFEPIME HCL 1GM 1 GM in SODIUM CHLORIDE 0.9% 50ML 50 ML IV STA (07:42)
[2021-03-31] MEDS ORDERED: VANCOMYCIN 1GM/NS 250 ML 250 ML IV ONE (07:45)
[2021-03-31] MEDS: PROPOFOL IV EMULSION 10MG/ML 100 ML IV PRN (07:46)
[2021-03-31] MEDS: HYDROCORTISONE SOD SUCCINATE 100 MG VIAL IV SCH ×2 (08:13→21:02)
[2021-03-31] MEDS: PANTOPRAZOLE 40 MG 10ML VIAL IV SCH ×2 (08:13→18:06)
[2021-03-31] MEDS ORDERED: METRONIDAZOLE 500MG/NS 100ML 100 ML IV SCH (09:00)
[2021-03-31 09:19] LABS: LYMPHOCYTES % (MANUAL) 4 % (19-48); MONOCYTES % (MANUAL) 4 % (3.4-9.0); NEUTROPHILS % (MANUAL) 92 % (40-74)
[2021-03-31] MEDS ORDERED: SODIUM BICARBONATE 8.4% 150 ML in DEXTROSE 5% 1,000 ML IV SCH (11:15)
[2021-03-31] MEDS ORDERED: FENTANYL 2000MCG/NS 250 250 ML IV PRN (11:30)
[2021-03-31] MEDS ORDERED: FUROSEMIDE INJ 10 MG/ML 4 ML VIAL IV NR (12:30)
[2021-03-31] MEDS: ALBUMIN 25% 25GM 100ML 0.25 GM/ML BTL IV SCH ×2 (13:03→21:02)
[2021-03-31] MEDS: FUROSEMIDE INJ 100 MG in SODIUM CHLORIDE 0.9% 100 ML 90 ML IV SCH (13:03)
[2021-03-31] MEDS ORDERED: CEFEPIME HCL 1 GM VIAL IV SCH (14:00)
[2021-03-31] MEDS: CEFEPIME HCL 1GM 1 GM in SODIUM CHLORIDE 0.9% 50ML 50 ML IV SCH ×2 (16:02→21:52)
[2021-03-31 16:26] LABS: ABG HCO3 19 mmol/L (22-26); ABG PCO2 27 mmHg (35-45); ABG PH 7.45 (7.35-7.45); ABG PO2 166 mmHg (80-105); ABG TCO2 19
[2021-03-31] MEDS: CLINDAMYCIN 600MG / 50ML 50 ML IV SCH (18:06)
[2021-03-31] MEDS: CENTRAL TPN FORMULA 1 BAG IV SCH (20:16)
[2021-04-01] VITALS (25 sets, daily range): BP systolic 97–147; BP diastolic 51–81
[2021-04-01] MEDS: CEFEPIME HCL 1GM 1 GM in SODIUM CHLORIDE 0.9% 50ML 50 ML IV SCH ×3 (06:00→21:22)
[2021-04-01] MEDS: SODIUM CHLORIDE 0.9% 250ML IRRIG IR SCH ×6 (06:06→23:06)
[2021-04-01] MEDS: CLINDAMYCIN 600MG / 50ML 50 ML IV SCH ×4 (06:14→18:32)
[2021-04-01 06:56] LABS: CALCIUM IONIZED 1.1 mmol/L (1.09-1.30)
[2021-04-01 07:32] LABS: BASOPHILS # (AUTO) 0.1 (0.0-0.1); BASOPHILS % 0.3 % (0.0-1.0); LYMPHOCYTES # (AUTO) 0.7 (1.0-3.2); LYMPHOCYTES % 2.7 % (18.0-39.1); MEAN CORPUSCULAR HEMOGLOBIN 27.9 pg (28-32); MEAN CORPUSCULAR HGB CONC 32.5 g/dL (31-35); MEAN CORPUSCULAR VOLUME 85.8 fL (81-99); MONOCYTES # (AUTO) 0.8 (0.2-0.8); MONOCYTES % 3.2 % (4.4-11.3); NEUTROPHILS # (AUTO) 23.1 (2.1-6.9); NEUTROPHILS % 90.4 % (38.7-80.0); PLATELET COUNT 130 x10e3/uL (140-360); RED CELL DISTRIBUTION WIDTH 18.5 % (11.7-14.4)
[2021-04-01 07:33] LABS: ALANINE AMINOTRANSFERASE 7 IU/L (0-55); ALBUMIN 1.6 g/dL (3.5-5.0); ALBUMIN/GLOBULIN RATIO 0.5 (0.8-2.0); ALKALINE PHOSPHATASE 111 IU/L (40-150); ANION GAP 16.1 mmol/L (8-16); BLOOD UREA NITROGEN 112 mg/dL (7-26); BUN/CREATININE RATIO 132 (6-25); CALCIUM 7.2 mg/dL (8.4-10.2); CARBON DIOXIDE 22 mmol/L (22-29); CHLORIDE 108 mmol/L (98-107); CREATININE, SERUM 0.85 mg/dL (0.57-1.11); EST GLOMERULAR FILTRATION RATE > 60 ML/MIN (60-); GLUCOSE 222 mg/dL (74-118); SODIUM 144 mmol/L (136-145)
[2021-04-01 07:37] LABS: POTASSIUM 2.1 mmol/L (3.5-5.1)
[2021-04-01 07:41] LABS: HEMATOCRIT 16.3 % (34.2-44.1); HEMOGLOBIN 5.3 g/dL (12.0-16.0)
[2021-04-01 08:12] LABS: MAGNESIUM 2.2 MG/DL (1.3-2.1)
[2021-04-01] MEDS: INSULIN REGULAR, HUMAN 100 UNIT/1 ML 3ML VIAL SQ SCH ×4 (08:14→21:24)
[2021-04-01] MEDS: PANTOPRAZOLE 40 MG 10ML VIAL IV SCH ×2 (09:05→16:47)
[2021-04-01] MEDS: HYDROCORTISONE SOD SUCCINATE 100 MG VIAL IV SCH ×2 (09:05→10:30)
[2021-04-01] MEDS: ALBUMIN 25% 25GM 100ML 0.25 GM/ML BTL IV SCH ×2 (09:05→21:22)
[2021-04-01] MEDS ORDERED: SODIUM CHLORIDE 0.9% 250ML 250 ML IV NR (09:15)
[2021-04-01] MEDS ORDERED: POTASSIUM CHLORIDE 20MEQ/100ML 200 ML IV ONE (09:15)
[2021-04-01] MEDS ORDERED: MORPHINE SULFATE INJ 2 MG/ML SYR IV PRN (11:15)
[2021-04-01 11:49] LABS: BAND NEUTROPHILS % (MANUAL) 1 %; LYMPHOCYTES % (MANUAL) 1 % (19-48); MONOCYTES % (MANUAL) 2 % (3.4-9.0); NEUTROPHILS % (MANUAL) 96 % (40-74); TOXIC GRANULATION SLIGHT
[2021-04-01 11:50] LABS: HYPOCHROMASIA MODERATE; PLATELET ESTIMATE SLIGHTLY DECREASED; PLATELET MORPHOLOGY COMMENT FEW LARGE; RBC MORPHOLOGY COMMENT ABNORMAL
[2021-04-01 12:05] LABS: ABG HCO3 24 mmol/L (22-26); ABG PCO2 38 mmHg (35-45); ABG PO2 62 mmHg (80-105); ABG TCO2 25
[2021-04-01] MEDS: FUROSEMIDE INJ 100 MG in SODIUM CHLORIDE 0.9% 100 ML 90 ML IV SCH (13:00)
[2021-04-01] MEDS ORDERED: SODIUM CHLORIDE 0.9% 250ML 250 ML ONE (13:40)
[2021-04-01] MEDS: POTASSIUM CHLORIDE 20MEQ/100ML 100 ML IV SCH ×3 (18:32→22:13)
[2021-04-01] MEDS: CENTRAL TPN FORMULA 1 BAG IV SCH (20:19)
[2021-04-01 22:19] LABS: BASOPHILS # (AUTO) 0.1 (0.0-0.1); BASOPHILS % 0.5 % (0.0-1.0); HEMATOCRIT 27.5 % (34.2-44.1); HEMOGLOBIN 9.2 g/dL (12.0-16.0); LYMPHOCYTES # (AUTO) 0.4 (1.0-3.2); LYMPHOCYTES % 1.9 % (18.0-39.1); MEAN CORPUSCULAR HEMOGLOBIN 29.2 pg (28-32); MEAN CORPUSCULAR HGB CONC 33.5 g/dL (31-35); MEAN CORPUSCULAR VOLUME 87.3 fL (81-99); MONOCYTES # (AUTO) 0.6 (0.2-0.8); MONOCYTES % 2.7 % (4.4-11.3); NEUTROPHILS # (AUTO) 20.5 (2.1-6.9); NEUTROPHILS % 92.9 % (38.7-80.0); PLATELET COUNT 123 x10e3/uL (140-360); RED CELL DISTRIBUTION WIDTH 16.5 % (11.7-14.4)
[2021-04-01 22:21] LABS: RED BLOOD COUNT 3.15 x10e6/uL (3.6-5.1)
[2021-04-02] VITALS (27 sets, daily range): BP systolic 125–163; BP diastolic 64–104
[2021-04-02] MEDS: SODIUM CHLORIDE 0.9% 250ML IRRIG IR SCH ×5 (04:18→19:44)
[2021-04-02] MEDS: CEFEPIME HCL 1GM 1 GM in SODIUM CHLORIDE 0.9% 50ML 50 ML IV SCH ×3 (06:00→21:08)
[2021-04-02] MEDS: CLINDAMYCIN 600MG / 50ML 50 ML IV SCH ×4 (06:00→17:49)
[2021-04-02 06:41] LABS: BASOPHILS # (AUTO) 0.1 (0.0-0.1); BASOPHILS % 0.5 % (0.0-1.0); EOSINOPHILS % 0.1 % (0.0-6.0); HEMATOCRIT 27.1 % (34.2-44.1); HEMOGLOBIN 9.1 g/dL (12.0-16.0); LYMPHOCYTES # (AUTO) 0.5 (1.0-3.2); MEAN CORPUSCULAR HEMOGLOBIN 28.9 pg (28-32); MEAN CORPUSCULAR HGB CONC 33.6 g/dL (31-35); MONOCYTES # (AUTO) 0.5 (0.2-0.8); MONOCYTES % 2.8 % (4.4-11.3); NEUTROPHILS % 91.8 % (38.7-80.0); PLATELET COUNT 117 x10e3/uL (140-360); RED BLOOD COUNT 3.15 x10e6/uL (3.6-5.1); RED CELL DISTRIBUTION WIDTH 16.7 % (11.7-14.4)
[2021-04-02 07:01] LABS: ALANINE AMINOTRANSFERASE 8 IU/L (0-55); ALBUMIN 2.4 g/dL (3.5-5.0); ALBUMIN/GLOBULIN RATIO 0.7 (0.8-2.0); ALKALINE PHOSPHATASE 155 IU/L (40-150); ANION GAP 17.6 mmol/L (8-16); BLOOD UREA NITROGEN 116 mg/dL (7-26); BUN/CREATININE RATIO 145 (6-25); CALCIUM 7.8 mg/dL (8.4-10.2); CARBON DIOXIDE 22 mmol/L (22-29); CHLORIDE 110 mmol/L (98-107); EST GLOMERULAR FILTRATION RATE > 60 ML/MIN (60-); GLUCOSE 161 mg/dL (74-118); SODIUM 147 mmol/L (136-145)
[2021-04-02 07:04] LABS: POTASSIUM 2.6 mmol/L (3.5-5.1)
[2021-04-02 07:11] LABS: MAGNESIUM 2.3 MG/DL (1.3-2.1); PHOSPHORUS 4.3 MG/DL (2.3-4.7)
[2021-04-02] MEDS: INSULIN REGULAR, HUMAN 100 UNIT/1 ML 3ML VIAL SQ SCH ×4 (07:41→21:00)
[2021-04-02 07:44] LABS: CALCIUM IONIZED 1.1 mmol/L (1.09-1.30)
[2021-04-02] MEDS: HYDROCORTISONE SOD SUCCINATE 100 MG VIAL IV SCH (08:40)
[2021-04-02] MEDS: PANTOPRAZOLE 40 MG 10ML VIAL IV SCH ×2 (08:40→16:53)
[2021-04-02] MEDS ORDERED: POTASSIUM CHLORIDE 20MEQ/100ML 200 ML IV ONE ×2 (08:45→18:30)
[2021-04-02 09:14] LABS: LYMPHOCYTES % (MANUAL) 2 % (19-48); MONOCYTES % (MANUAL) 2 % (3.4-9.0); NEUTROPHILS % (MANUAL) 96 % (40-74)
[2021-04-02 09:15] LABS: ANISOCYTOSIS SLIGHT; PLATELET ESTIMATE SLIGHTLY DECREASED; PLATELET MORPHOLOGY COMMENT NORMAL; RBC MORPHOLOGY COMMENT NORMAL
[2021-04-02 10:32] LABS: ABG HCO3 22 mmol/L (22-26); ABG PCO2 36 mmHg (35-45); ABG PH 7.41 (7.35-7.45); ABG PO2 130 mmHg (80-105); ABG TCO2 23
[2021-04-02 17:21] LABS: ABG HCO3 25 mmol/L (22-26); ABG PCO2 57 mmHg (35-45); ABG PH 7.26 (7.35-7.45); ABG PO2 85 mmHg (80-105); ABG TCO2 26
[2021-04-02] MEDS: CENTRAL TPN FORMULA 1 BAG IV SCH (20:00)
[2021-04-03] VITALS (27 sets, daily range): BP systolic 112–162; BP diastolic 58–81
[2021-04-03] MEDS: SODIUM CHLORIDE 0.9% 250ML IRRIG IR SCH ×7 (00:05→23:15)
[2021-04-03] MEDS: CLINDAMYCIN 600MG / 50ML 50 ML IV SCH ×4 (00:06→17:59)
[2021-04-03 06:22] LABS: BASOPHILS # (AUTO) 0.1 (0.0-0.1); BASOPHILS % 0.6 % (0.0-1.0); EOSINOPHILS % 0.2 % (0.0-6.0); HEMATOCRIT 29.6 % (34.2-44.1); HEMOGLOBIN 9.9 g/dL (12.0-16.0); LYMPHOCYTES # (AUTO) 0.4 (1.0-3.2); LYMPHOCYTES % 1.9 % (18.0-39.1); MEAN CORPUSCULAR HEMOGLOBIN 29.6 pg (28-32); MEAN CORPUSCULAR HGB CONC 33.4 g/dL (31-35); MEAN CORPUSCULAR VOLUME 88.4 fL (81-99); MONOCYTES # (AUTO) 0.4 (0.2-0.8); NEUTROPHILS # (AUTO) 20.3 (2.1-6.9); PLATELET COUNT 142 x10e3/uL (140-360); RED BLOOD COUNT 3.35 x10e6/uL (3.6-5.1); RED CELL DISTRIBUTION WIDTH 17.7 % (11.7-14.4)
[2021-04-03] MEDS: CEFEPIME HCL 1GM 1 GM in SODIUM CHLORIDE 0.9% 50ML 50 ML IV SCH ×3 (06:22→21:27)
[2021-04-03 06:44] LABS: ALANINE AMINOTRANSFERASE 9 IU/L (0-55); ALBUMIN 1.9 g/dL (3.5-5.0); ALBUMIN/GLOBULIN RATIO 0.5 (0.8-2.0); ALKALINE PHOSPHATASE 203 IU/L (40-150); ANION GAP 19.7 mmol/L (8-16); BLOOD UREA NITROGEN 122 mg/dL (7-26); BUN/CREATININE RATIO 156 (6-25); CALCIUM 7.7 mg/dL (8.4-10.2); CARBON DIOXIDE 22 mmol/L (22-29); CHLORIDE 110 mmol/L (98-107); CREATININE, SERUM 0.78 mg/dL (0.57-1.11); EST GLOMERULAR FILTRATION RATE > 60 ML/MIN (60-); GLUCOSE 162 mg/dL (74-118); POTASSIUM 3.7 mmol/L (3.5-5.1); SODIUM 148 mmol/L (136-145)
[2021-04-03 07:31] LABS: BAND NEUTROPHILS % (MANUAL) 2 %; LYMPHOCYTES % (MANUAL) 3 % (19-48); MONOCYTES % (MANUAL) 5 % (3.4-9.0); NEUTROPHILS % (MANUAL) 90 % (40-74)
[2021-04-03 07:32] LABS: PLATELET ESTIMATE ADEQUATE; PLATELET MORPHOLOGY COMMENT NORMAL; RBC MORPHOLOGY COMMENT NORMAL; TOXIC GRANULATION SLIGHT
[2021-04-03] MEDS: INSULIN REGULAR, HUMAN 100 UNIT/1 ML 3ML VIAL SQ SCH ×4 (08:13→21:26)
[2021-04-03] MEDS: PANTOPRAZOLE 40 MG 10ML VIAL IV SCH ×2 (08:54→17:19)
[2021-04-03] MEDS: HYDROCORTISONE SOD SUCCINATE 100 MG VIAL IV SCH (08:54)
[2021-04-03 09:40] LABS: ABG HCO3 24 mmol/L (22-26); ABG PCO2 46 mmHg (35-45); ABG PH 7.34 (7.35-7.45); ABG PO2 179 mmHg (80-105); ABG TCO2 26
[2021-04-03] MEDS ORDERED: LACTATED RINGER'S 500 ML INJ ONE (10:00)
[2021-04-03] MEDS ORDERED: FUROSEMIDE INJ 10 MG/ML 4 ML VIAL IV SCH (11:00)
[2021-04-03] MEDS ORDERED: MORPHINE SULFATE INJ 2 MG/ML SYR IV PRN (11:15)
[2021-04-03] MEDS ORDERED: DEXTROSE 5% 500ML 500 ML IV ONE (15:00)
[2021-04-03] MEDS: CENTRAL TPN FORMULA 1 BAG IV SCH (20:37)
[2021-04-04] VITALS (25 sets, daily range): BP systolic 109–135; BP diastolic 57–84
[2021-04-04] MEDS: SODIUM CHLORIDE 0.9% 250ML IRRIG IR SCH ×6 (03:15→23:15)
[2021-04-04 06:51] LABS: BASOPHILS # (AUTO) 0.2 (0.0-0.1); BASOPHILS % 0.8 % (0.0-1.0); EOSINOPHILS # (AUTO) 0.1 (0.0-0.4); EOSINOPHILS % 0.3 % (0.0-6.0); HEMATOCRIT 28.4 % (34.2-44.1); LYMPHOCYTES # (AUTO) 0.4 (1.0-3.2); MEAN CORPUSCULAR HEMOGLOBIN 29.1 pg (28-32); MEAN CORPUSCULAR HGB CONC 31.7 g/dL (31-35); MEAN CORPUSCULAR VOLUME 91.9 fL (81-99); MONOCYTES # (AUTO) 0.4 (0.2-0.8); MONOCYTES % 1.9 % (4.4-11.3); NEUTROPHILS # (AUTO) 18.1 (2.1-6.9); NEUTROPHILS % 93.6 % (38.7-80.0); PLATELET COUNT 129 x10e3/uL (140-360); RED BLOOD COUNT 3.09 x10e6/uL (3.6-5.1); RED CELL DISTRIBUTION WIDTH 18.4 % (11.7-14.4)
[2021-04-04 07:04] LABS: CALCIUM IONIZED 1.2 mmol/L (1.09-1.30)
[2021-04-04 07:15] LABS: ALANINE AMINOTRANSFERASE 9 IU/L (0-55); ALBUMIN 1.6 g/dL (3.5-5.0); ALBUMIN/GLOBULIN RATIO 0.4 (0.8-2.0); ALKALINE PHOSPHATASE 191 IU/L (40-150); ANION GAP 15.6 mmol/L (8-16); BLOOD UREA NITROGEN 122 mg/dL (7-26); BUN/CREATININE RATIO 165 (6-25); CALCIUM 7.8 mg/dL (8.4-10.2); CARBON DIOXIDE 23 mmol/L (22-29); CHLORIDE 113 mmol/L (98-107); CREATININE, SERUM 0.74 mg/dL (0.57-1.11); EST GLOMERULAR FILTRATION RATE > 60 ML/MIN (60-); GLUCOSE 140 mg/dL (74-118); MAGNESIUM 2.1 MG/DL (1.3-2.1); PHOSPHORUS 5.4 MG/DL (2.3-4.7); POTASSIUM 3.6 mmol/L (3.5-5.1); SODIUM 148 mmol/L (136-145)
[2021-04-04] MEDS: INSULIN REGULAR, HUMAN 100 UNIT/1 ML 3ML VIAL SQ SCH ×4 (07:30→20:31)
[2021-04-04 07:56] LABS: BAND NEUTROPHILS % (MANUAL) 5 %; LYMPHOCYTES % (MANUAL) 1 % (19-48); MONOCYTES % (MANUAL) 2 % (3.4-9.0); NEUTROPHILS % (MANUAL) 92 % (40-74)
[2021-04-04 07:57] LABS: PLATELET ESTIMATE SLIGHTLY DECREASED; PLATELET MORPHOLOGY COMMENT NORMAL; RBC MORPHOLOGY COMMENT NORMAL; TOXIC GRANULATION SLIGHT
[2021-04-04] MEDS: PANTOPRAZOLE 40 MG 10ML VIAL IV SCH ×2 (08:50→17:06)
[2021-04-04] MEDS: HYDROCORTISONE SOD SUCCINATE 100 MG VIAL IV SCH (08:50)
[2021-04-04] MEDS ORDERED: DEXTROSE 5% 500 ML IV ONE (10:45)
[2021-04-04] MEDS: CLINDAMYCIN 600MG / 50ML 50 ML IV SCH ×2 (11:40→17:44)
[2021-04-04 13:36] LABS: ABG HCO3 25 mmol/L (22-26); ABG PCO2 51 mmHg (35-45); ABG PH 7.29 (7.35-7.45); ABG PO2 162 mmHg (80-105); ABG TCO2 26
[2021-04-04] MEDS: CEFEPIME HCL 1GM 1 GM in SODIUM CHLORIDE 0.9% 50ML 50 ML IV SCH ×2 (14:11→22:01)
[2021-04-04] MEDS ORDERED: DEXTROSE 5% 500ML 500 ML IV ONE (18:30)
[2021-04-04] MEDS: CENTRAL TPN FORMULA 1 BAG IV SCH (20:31)
[2021-04-05] VITALS (26 sets, daily range): BP systolic 85–151; BP diastolic 54–85
[2021-04-05] MEDS: SODIUM CHLORIDE 0.9% 250ML IRRIG IR SCH ×5 (03:15→19:15)
[2021-04-05 05:48] LABS: BASOPHILS # (AUTO) 0.1 (0.0-0.1); BASOPHILS % 0.3 % (0.0-1.0); EOSINOPHILS # (AUTO) 0.1 (0.0-0.4); EOSINOPHILS % 0.4 % (0.0-6.0); HEMATOCRIT 28.4 % (34.2-44.1); HEMOGLOBIN 9.1 g/dL (12.0-16.0); LYMPHOCYTES # (AUTO) 0.4 (1.0-3.2); LYMPHOCYTES % 2.6 % (18.0-39.1); MEAN CORPUSCULAR HEMOGLOBIN 29.7 pg (28-32); MEAN CORPUSCULAR VOLUME 92.8 fL (81-99); MONOCYTES # (AUTO) 0.3 (0.2-0.8); NEUTROPHILS # (AUTO) 15.2 (2.1-6.9); NEUTROPHILS % 93.7 % (38.7-80.0); PLATELET COUNT 131 x10e3/uL (140-360); RED BLOOD COUNT 3.06 x10e6/uL (3.6-5.1); RED CELL DISTRIBUTION WIDTH 18.6 % (11.7-14.4)
[2021-04-05] MEDS: CEFEPIME HCL 1GM 1 GM in SODIUM CHLORIDE 0.9% 50ML 50 ML IV SCH ×3 (05:49→22:19)
[2021-04-05] MEDS: CLINDAMYCIN 600MG / 50ML 50 ML IV SCH ×4 (05:49→18:33)
[2021-04-05 06:14] LABS: ALANINE AMINOTRANSFERASE 15 IU/L (0-55); ALBUMIN 1.6 g/dL (3.5-5.0); ALBUMIN/GLOBULIN RATIO 0.3 (0.8-2.0); ALKALINE PHOSPHATASE 207 IU/L (40-150); ANION GAP 14.4 mmol/L (8-16); BLOOD UREA NITROGEN 123 mg/dL (7-26); BUN/CREATININE RATIO 166 (6-25); CALCIUM 7.8 mg/dL (8.4-10.2); CARBON DIOXIDE 23 mmol/L (22-29); CHLORIDE 111 mmol/L (98-107); CREATININE, SERUM 0.74 mg/dL (0.57-1.11); EST GLOMERULAR FILTRATION RATE > 60 ML/MIN (60-); GLUCOSE 172 mg/dL (74-118); POTASSIUM 3.4 mmol/L (3.5-5.1); SODIUM 145 mmol/L (136-145)
[2021-04-05] MEDS: INSULIN REGULAR, HUMAN 100 UNIT/1 ML 3ML VIAL SQ SCH ×4 (07:28→22:19)
[2021-04-05 07:54] LABS: BAND NEUTROPHILS % (MANUAL) 3 %; LYMPHOCYTES % (MANUAL) 7 % (19-48); MONOCYTES % (MANUAL) 1 % (3.4-9.0); NEUTROPHILS % (MANUAL) 89 % (40-74)
[2021-04-05 07:55] LABS: PLATELET ESTIMATE SLIGHTLY DECREASED; PLATELET MORPHOLOGY COMMENT NORMAL; RBC MORPHOLOGY COMMENT NORMAL; TOXIC GRANULATION SLIGHT
[2021-04-05] MEDS: PANTOPRAZOLE 40 MG 10ML VIAL IV SCH ×2 (08:33→17:20)
[2021-04-05] MEDS: HYDROCORTISONE SOD SUCCINATE 100 MG VIAL IV SCH (08:33)
[2021-04-05] MEDS ORDERED: SODIUM CHLORIDE 0.45% 500 ML IV ONE (09:00)
[2021-04-05] MEDS ORDERED: POTASSIUM CHLORIDE 20MEQ/100ML 200 ML IV ONE (09:30)
[2021-04-05 09:45] LABS: ABG HCO3 24 mmol/L (22-26); ABG PCO2 55 mmHg (35-45); ABG PH 7.25 (7.35-7.45); ABG PO2 177 mmHg (80-105)
[2021-04-05] MEDS ORDERED: AMIODARONE HCL 150 MG/100 ML BAG IV ONE (09:45)
[2021-04-05 09:46] LABS: ABG TCO2 26
[2021-04-05] MEDS ORDERED: AMIODARONE 900MG 500 ML IV SCH (09:55)
[2021-04-05] MEDS ORDERED: BENZOCAINE 20% SPR 60 ML CAN MT ONE (10:45)
[2021-04-05] MEDS: NOREPINEPHRINE 8 MG/D5W 250 ML 250 ML IV SCH (14:10)
[2021-04-05] MEDS ORDERED: MIDAZOLAM HCL 2 MG/2 ML VIAL ONE (16:07)
[2021-04-05] MEDS ORDERED: SUCCINYLCHOLINE CHLORIDE 20 MG/ML 10ML VIAL ONE (16:07)
[2021-04-05] MEDS ORDERED: ETOMIDATE 2 MG/ML 10 ML INJ IV ONE (16:07)
[2021-04-05] MEDS: CENTRAL TPN FORMULA 1 BAG IV SCH (20:00)
[2021-04-06] VITALS (27 sets, daily range): BP systolic 68–126; BP diastolic 41–98
[2021-04-06] MEDS: CLINDAMYCIN 600MG / 50ML 50 ML IV SCH ×4 (00:22→18:00)
[2021-04-06] MEDS: SODIUM CHLORIDE 0.9% 250ML IRRIG IR SCH ×7 (00:22→23:15)
[2021-04-06 05:51] LABS: BASOPHILS # (AUTO) 0.1 (0.0-0.1); BASOPHILS % 0.4 % (0.0-1.0); EOSINOPHILS % 0.2 % (0.0-6.0); HEMATOCRIT 30.3 % (34.2-44.1); HEMOGLOBIN 9.1 g/dL (12.0-16.0); LYMPHOCYTES # (AUTO) 0.3 (1.0-3.2); LYMPHOCYTES % 1.6 % (18.0-39.1); MEAN CORPUSCULAR HEMOGLOBIN 29.4 pg (28-32); MEAN CORPUSCULAR VOLUME 97.7 fL (81-99); MONOCYTES # (AUTO) 0.7 (0.2-0.8); MONOCYTES % 3.3 % (4.4-11.3); NEUTROPHILS # (AUTO) 19.4 (2.1-6.9); NEUTROPHILS % 92.7 % (38.7-80.0); PLATELET COUNT 169 x10e3/uL (140-360)
[2021-04-06 06:19] LABS: ALANINE AMINOTRANSFERASE 17 IU/L (0-55); ALBUMIN 1.6 g/dL (3.5-5.0); ALBUMIN/GLOBULIN RATIO 0.3 (0.8-2.0); ALKALINE PHOSPHATASE 241 IU/L (40-150); ANION GAP 17.1 mmol/L (8-16); BUN/CREATININE RATIO 153 (6-25); CALCIUM 8.1 mg/dL (8.4-10.2); CARBON DIOXIDE 20 mmol/L (22-29); CHLORIDE 109 mmol/L (98-107); CREATININE, SERUM 0.88 mg/dL (0.57-1.11); EST GLOMERULAR FILTRATION RATE > 60 ML/MIN (60-); GLUCOSE 229 mg/dL (74-118); POTASSIUM 5.1 mmol/L (3.5-5.1); SODIUM 141 mmol/L (136-145)
[2021-04-06 06:23] LABS: BLOOD UREA NITROGEN 135 mg/dL (7-26)
[2021-04-06] MEDS: NOREPINEPHRINE 8 MG/D5W 250 ML 250 ML IV SCH ×2 (06:24→15:00)
[2021-04-06] MEDS: CEFEPIME HCL 1GM 1 GM in SODIUM CHLORIDE 0.9% 50ML 50 ML IV SCH ×3 (06:35→20:44)
[2021-04-06] MEDS ORDERED: SODIUM BICARBONATE 8.4% INJ 50 ML SYR IV STA (06:41)
[2021-04-06] MEDS ORDERED: ALBUMIN 25% 25GM 100ML 0.25 GM/ML BTL IV ONE (07:45)
[2021-04-06 08:45] LABS: BAND NEUTROPHILS % (MANUAL) 1 %; LYMPHOCYTES % (MANUAL) 3 % (19-48); MONOCYTES % (MANUAL) 3 % (3.4-9.0); NEUTROPHILS % (MANUAL) 93 % (40-74)
[2021-04-06 08:46] LABS: RBC MORPHOLOGY COMMENT NORMAL
[2021-04-06 08:47] LABS: HYPOCHROMASIA SLIGHT; MICROCYTOSIS SLIG; PLATELET ESTIMATE ADEQUATE; PLATELET MORPHOLOGY COMMENT NORMAL; POIKILOCYTOSIS SLIGHT; TOXIC GRANULATION SLIGHT
[2021-04-06 08:49] LABS: ANISOCYTOSIS SLIG
[2021-04-06] MEDS: PANTOPRAZOLE 40 MG 10ML VIAL IV SCH ×2 (09:06→18:17)
[2021-04-06 09:30] LABS: ABG HCO3 21 mmol/L (22-26); ABG PCO2 43 mmHg (35-45); ABG PH 7.29 (7.35-7.45); ABG PO2 131 mmHg (80-105); ABG TCO2 22
[2021-04-06] MEDS: INSULIN REGULAR, HUMAN 100 UNIT/1 ML 3ML VIAL SQ SCH ×2 (11:40→18:00)
[2021-04-06] MEDS ORDERED: ALBUMIN 25% 25GM 100ML 0.25 GM/ML BTL IV SCH (14:00)
[2021-04-06] MEDS: ALBUMIN 25% 25GM 100ML 100 ML IV SCH ×2 (15:00→20:45)
[2021-04-06] MEDS: FUROSEMIDE INJ 10 MG/ML 4 ML VIAL IV SCH ×2 (15:00→21:41)
[2021-04-06] MEDS: FENTANYL 2000MCG/NS 250 250 ML IV SCH (16:33)
[2021-04-06] MEDS: CENTRAL TPN FORMULA 1 BAG IV SCH (20:47)
[2021-04-07] VITALS (26 sets, daily range): BP systolic 88–148; BP diastolic 48–69
[2021-04-07] MEDS: CLINDAMYCIN 600MG / 50ML 50 ML IV SCH ×4 (01:06→18:50)
[2021-04-07] MEDS: SODIUM CHLORIDE 0.9% 250ML IRRIG IR SCH ×6 (03:15→23:17)
[2021-04-07] MEDS: INSULIN REGULAR, HUMAN 100 UNIT/1 ML 3ML VIAL SQ SCH ×4 (06:00→18:00)
[2021-04-07] MEDS: CEFEPIME HCL 1GM 1 GM in SODIUM CHLORIDE 0.9% 50ML 50 ML IV SCH ×3 (06:00→22:49)
[2021-04-07 06:51] LABS: BASOPHILS # (AUTO) 0.1 (0.0-0.1); BASOPHILS % 0.5 % (0.0-1.0); EOSINOPHILS # (AUTO) 0.1 (0.0-0.4); EOSINOPHILS % 0.3 % (0.0-6.0); LYMPHOCYTES # (AUTO) 0.6 (1.0-3.2); LYMPHOCYTES % 2.9 % (18.0-39.1); MEAN CORPUSCULAR HEMOGLOBIN 29.5 pg (28-32); MEAN CORPUSCULAR HGB CONC 32.4 g/dL (31-35); MONOCYTES # (AUTO) 0.6 (0.2-0.8); MONOCYTES % 2.5 % (4.4-11.3); NEUTROPHILS # (AUTO) 19.5 (2.1-6.9); NEUTROPHILS % 88.9 % (38.7-80.0); PLATELET COUNT 103 x10e3/uL (140-360); RED BLOOD COUNT 2.37 x10e6/uL (3.6-5.1); RED CELL DISTRIBUTION WIDTH 18.2 % (11.7-14.4)
[2021-04-07 07:04] LABS: CALCIUM IONIZED 1.2 mmol/L (1.09-1.30)
[2021-04-07 07:24] LABS: PHOSPHORUS 4.9 MG/DL (2.3-4.7)
[2021-04-07 07:31] LABS: ALBUMIN 2.3 g/dL (3.5-5.0); ALBUMIN/GLOBULIN RATIO 0.6 (0.8-2.0); ANION GAP 17.6 mmol/L (8-16); CALCIUM 7.6 mg/dL (8.4-10.2); POTASSIUM 4.6 mmol/L (3.5-5.1)
[2021-04-07 07:34] LABS: HEMATOCRIT 21.6 % (34.2-44.1); MEAN CORPUSCULAR VOLUME 91.1 fL (81-99)
[2021-04-07] MEDS: ALBUMIN 25% 25GM 100ML 100 ML IV SCH (07:43)
[2021-04-07] MEDS: FENTANYL 2000MCG/NS 250 250 ML IV SCH (08:00)
[2021-04-07 08:40] LABS: LYMPHOCYTES % (MANUAL) 3 % (19-48); NEUTROPHILS % (MANUAL) 97 % (40-74)
[2021-04-07] MEDS: PANTOPRAZOLE 40 MG 10ML VIAL IV SCH ×2 (09:28→18:49)
[2021-04-07] MEDS: FUROSEMIDE INJ 10 MG/ML 4 ML VIAL IV SCH (09:28)
[2021-04-07 11:07] LABS: ABG HCO3 18 mmol/L (22-26); ABG PCO2 36 mmHg (35-45); ABG PH 7.31 (7.35-7.45); ABG PO2 69 mmHg (80-105); ABG TCO2 19
[2021-04-07] MEDS: NOREPINEPHRINE 8 MG/D5W 250 ML 250 ML IV SCH (14:39)
[2021-04-07] MEDS ORDERED: SODIUM CHLORIDE 0.9% 1000ML 2,000 ML ONE (21:19)
[2021-04-07] MEDS: CENTRAL TPN FORMULA 1 BAG IV SCH (22:01)
[2021-04-08] VITALS (25 sets, daily range): BP systolic 96–151; BP diastolic 53–99
[2021-04-08] MEDS: CLINDAMYCIN 600MG / 50ML 50 ML IV SCH ×4 (00:45→18:00)
[2021-04-08] MEDS: SODIUM CHLORIDE 0.9% 250ML IRRIG IR SCH ×5 (03:32→20:59)
[2021-04-08 05:55] LABS: BASOPHILS # (AUTO) 0.1 (0.0-0.1); BASOPHILS % 0.3 % (0.0-1.0); EOSINOPHILS % 0.2 % (0.0-6.0); HEMATOCRIT 22.7 % (34.2-44.1); HEMOGLOBIN 7.5 g/dL (12.0-16.0); LYMPHOCYTES # (AUTO) 0.3 (1.0-3.2); LYMPHOCYTES % 1.9 % (18.0-39.1); MEAN CORPUSCULAR HEMOGLOBIN 29.8 pg (28-32); MEAN CORPUSCULAR VOLUME 90.1 fL (81-99); MONOCYTES # (AUTO) 0.4 (0.2-0.8); MONOCYTES % 2.1 % (4.4-11.3); NEUTROPHILS # (AUTO) 15.7 (2.1-6.9); NEUTROPHILS % 91.6 % (38.7-80.0); PLATELET COUNT 81 x10e3/uL (140-360); RED BLOOD COUNT 2.52 x10e6/uL (3.6-5.1); RED CELL DISTRIBUTION WIDTH 16.9 % (11.7-14.4)
[2021-04-08] MEDS: CEFEPIME HCL 1GM 1 GM in SODIUM CHLORIDE 0.9% 50ML 50 ML IV SCH ×3 (05:58→22:19)
[2021-04-08] MEDS: FENTANYL 2000MCG/NS 250 250 ML IV SCH (06:00)
[2021-04-08] MEDS: INSULIN REGULAR, HUMAN 100 UNIT/1 ML 3ML VIAL SQ SCH ×4 (06:00→18:00)
[2021-04-08 06:10] LABS: ALANINE AMINOTRANSFERASE 15 IU/L (0-55); ALBUMIN/GLOBULIN RATIO 0.5 (0.8-2.0); ALKALINE PHOSPHATASE 160 IU/L (40-150); ANION GAP 16.6 mmol/L (8-16); BLOOD UREA NITROGEN 104 mg/dL (7-26); BUN/CREATININE RATIO 133 (6-25); CALCIUM 7.7 mg/dL (8.4-10.2); CARBON DIOXIDE 21 mmol/L (22-29); CHLORIDE 104 mmol/L (98-107); CREATININE, SERUM 0.78 mg/dL (0.57-1.11); EST GLOMERULAR FILTRATION RATE > 60 ML/MIN (60-); GLUCOSE 114 mg/dL (74-118); POTASSIUM 3.6 mmol/L (3.5-5.1); SODIUM 138 mmol/L (136-145)
[2021-04-08 07:20] LABS: ANISOCYTOSIS SLIGHT; BAND NEUTROPHILS % (MANUAL) 3 %; EOSINOPHILS % (MANUAL) 1 % (0-7); LYMPHOCYTES % (MANUAL) 5 % (19-48); NEUTROPHILS % (MANUAL) 91 % (40-74); NUCLEATED RED BLOOD CELLS 1; PLATELET ESTIMATE SLIGHTLY DECREASED; PLATELET MORPHOLOGY COMMENT NORMAL; RBC MORPHOLOGY COMMENT NORMAL
[2021-04-08] MEDS: PANTOPRAZOLE 40 MG 10ML VIAL IV SCH ×2 (08:45→18:00)
[2021-04-08] MEDS ORDERED: SODIUM CHLORIDE 0.9% 1000ML 2,000 ML IV PRN (11:45)
[2021-04-08] MEDS ORDERED: HEPARIN SOD (PORCINE) 1000 UNIT/ML SDV IV PRN (11:45)
[2021-04-08] MEDS ORDERED: SODIUM CHLORIDE 0.9% 250ML 500 ML IV PRN (11:45)
[2021-04-08] MEDS ORDERED: ALBUMIN 25% 12.5GM 0.25 GM/ML BTL IV PRN (11:45)
[2021-04-08] MEDS ORDERED: ALBUMIN 25% 25GM 100ML 100 ML ONE (11:54)
[2021-04-08 12:24] LABS: ABG HCO3 22 mmol/L (22-26); ABG PCO2 38 mmHg (35-45); ABG PH 7.37 (7.35-7.45); ABG PO2 138 mmHg (80-105); ABG TCO2 23
[2021-04-08] MEDS: NOREPINEPHRINE 8 MG/D5W 250 ML 250 ML IV SCH (12:30)
[2021-04-08] MEDS: LEVETIRACETAM 500MG/5ML VIAL 750 MG in SODIUM CHLORIDE 0.9% 100 ML 100 ML IV SCH (14:27)
[2021-04-08] MEDS ORDERED: VECURONIUM BROMIDE FOR INJ 20 MG VIAL ONE (16:08)
[2021-04-08] MEDS ORDERED: MIDAZOLAM HCL 2 MG/2 ML VIAL ONE (16:08)
[2021-04-08] MEDS ORDERED: ETOMIDATE 2 MG/ML 10 ML INJ IV ONE (16:08)
[2021-04-08] MEDS ORDERED: WATER STERILE 10 ML VIAL ONE (16:08)
[2021-04-08] MEDS: CENTRAL TPN FORMULA 1 BAG IV SCH (20:59)
[2021-04-09] VITALS (47 sets, daily range): BP systolic 9–164; BP diastolic 43–77
[2021-04-09] MEDS: CLINDAMYCIN 600MG / 50ML 50 ML IV SCH ×4 (00:06→16:53)
[2021-04-09] MEDS: SODIUM CHLORIDE 0.9% 250ML IRRIG IR SCH ×7 (00:06→23:15)
[2021-04-09] MEDS: CEFEPIME HCL 1GM 1 GM in SODIUM CHLORIDE 0.9% 50ML 50 ML IV SCH ×3 (05:44→22:38)
[2021-04-09] MEDS: INSULIN REGULAR, HUMAN 100 UNIT/1 ML 3ML VIAL SQ SCH ×4 (06:00→17:03)
[2021-04-09 06:14] LABS: BASOPHILS % 0.2 % (0.0-1.0); EOSINOPHILS % 0.2 % (0.0-6.0); LYMPHOCYTES # (AUTO) 0.3 (1.0-3.2); LYMPHOCYTES % 2.4 % (18.0-39.1); MEAN CORPUSCULAR HGB CONC 33.5 g/dL (31-35); MEAN CORPUSCULAR VOLUME 89.6 fL (81-99); MONOCYTES # (AUTO) 0.2 (0.2-0.8); MONOCYTES % 1.9 % (4.4-11.3); NEUTROPHILS # (AUTO) 10.9 (2.1-6.9); NEUTROPHILS % 89.7 % (38.7-80.0); PLATELET COUNT 70 x10e3/uL (140-360); RED CELL DISTRIBUTION WIDTH 17.1 % (11.7-14.4)
[2021-04-09 06:23] LABS: HEMATOCRIT 20.6 % (34.2-44.1); HEMOGLOBIN 6.9 g/dL (12.0-16.0)
[2021-04-09] MEDS ORDERED: SODIUM CHLORIDE 0.9% 250ML 250 ML IV ONE (06:30)
[2021-04-09 06:34] LABS: ALANINE AMINOTRANSFERASE 21 IU/L (0-55); ALBUMIN 1.8 g/dL (3.5-5.0); ALBUMIN/GLOBULIN RATIO 0.5 (0.8-2.0); ALKALINE PHOSPHATASE 196 IU/L (40-150); ANION GAP 13.1 mmol/L (8-16); BLOOD UREA NITROGEN 60 mg/dL (7-26); BUN/CREATININE RATIO 97 (6-25); CALCIUM 7.5 mg/dL (8.4-10.2); CARBON DIOXIDE 27 mmol/L (22-29); CHLORIDE 101 mmol/L (98-107); CREATININE, SERUM 0.62 mg/dL (0.57-1.11); EST GLOMERULAR FILTRATION RATE > 60 ML/MIN (60-); GLUCOSE 96 mg/dL (74-118); POTASSIUM 3.1 mmol/L (3.5-5.1); SODIUM 138 mmol/L (136-145)
[2021-04-09] MEDS: FENTANYL 2000MCG/NS 250 250 ML IV SCH (06:44)
[2021-04-09 07:45] LABS: BAND NEUTROPHILS % (MANUAL) 1 %; LYMPHOCYTES % (MANUAL) 6 % (19-48); MYELOCYTES % (MANUAL) 1 % (0-0)
[2021-04-09 07:46] LABS: ANISOCYTOSIS SLIGHT; PLATELET ESTIMATE MODERATELY DECREASED; PLATELET MORPHOLOGY COMMENT NORMAL; RBC MORPHOLOGY COMMENT NORMAL
[2021-04-09 07:47] LABS: MONOCYTES % (MANUAL) 2 % (3.4-9.0); NEUTROPHILS % (MANUAL) 90 % (40-74)
[2021-04-09] MEDS ORDERED: POTASSIUM CHLORIDE 20MEQ/100ML 100 ML IV ONE (09:00)
[2021-04-09] MEDS: PANTOPRAZOLE 40 MG 10ML VIAL IV SCH ×2 (09:50→16:32)
[2021-04-09] MEDS: LEVETIRACETAM 500MG/5ML VIAL 750 MG in SODIUM CHLORIDE 0.9% 100 ML 100 ML IV SCH (09:50)
[2021-04-09] MEDS: HEPARIN SOD (PORCINE) 5,000 UNIT/ML VIAL SC SCH ×2 (09:51→21:45)
[2021-04-09] MEDS: NOREPINEPHRINE 8 MG/D5W 250 ML 250 ML IV SCH (13:30)
[2021-04-09] MEDS ORDERED: SODIUM CHLORIDE 0.9% 50ML 100 ML ONE (13:50)
[2021-04-09 15:29] LABS: ABG PH 7.29 (7.35-7.45)
[2021-04-09 15:30] LABS: ABG HCO3 29 mmol/L (22-26); ABG PCO2 61 mmHg (35-45); ABG PO2 75 mmHg (80-105); ABG TCO2 31
[2021-04-09] MEDS: LORAZEPAM INJ 2 MG/ML VIAL IV PRN (16:45)
[2021-04-09] MEDS: CENTRAL TPN FORMULA 1 BAG IV SCH (20:00)
[2021-04-10] VITALS (27 sets, daily range): BP systolic 80–132; BP diastolic 47–87
[2021-04-10] MEDS: CLINDAMYCIN 600MG / 50ML 50 ML IV SCH ×3 (00:25→11:41)
[2021-04-10] MEDS: LORAZEPAM INJ 2 MG/ML VIAL IV PRN (00:26)
[2021-04-10] MEDS: NOREPINEPHRINE 8 MG/D5W 250 ML 250 ML IV SCH (02:53)
[2021-04-10] MEDS: SODIUM CHLORIDE 0.9% 250ML IRRIG IR SCH ×6 (03:17→23:15)
[2021-04-10 05:20] LABS: BASOPHILS % 0.3 % (0.0-1.0); EOSINOPHILS % 0.2 % (0.0-6.0); HEMATOCRIT 23.7 % (34.2-44.1); HEMOGLOBIN 7.9 g/dL (12.0-16.0); LYMPHOCYTES # (AUTO) 0.5 (1.0-3.2); MEAN CORPUSCULAR HEMOGLOBIN 30.2 pg (28-32); MEAN CORPUSCULAR HGB CONC 33.3 g/dL (31-35); MEAN CORPUSCULAR VOLUME 90.5 fL (81-99); MONOCYTES # (AUTO) 0.2 (0.2-0.8); MONOCYTES % 1.5 % (4.4-11.3); NEUTROPHILS # (AUTO) 11.4 (2.1-6.9); NEUTROPHILS % 88.1 % (38.7-80.0); PLATELET COUNT 61 x10e3/uL (140-360); RED BLOOD COUNT 2.62 x10e6/uL (3.6-5.1); RED CELL DISTRIBUTION WIDTH 16.9 % (11.7-14.4)
[2021-04-10 05:39] LABS: ALANINE AMINOTRANSFERASE 28 IU/L (0-55); ALBUMIN 1.5 g/dL (3.5-5.0); ALBUMIN/GLOBULIN RATIO 0.4 (0.8-2.0); ALKALINE PHOSPHATASE 217 IU/L (40-150); ANION GAP 14.5 mmol/L (8-16); BLOOD UREA NITROGEN 58 mg/dL (7-26); BUN/CREATININE RATIO 85 (6-25); CALCIUM 7.7 mg/dL (8.4-10.2); CARBON DIOXIDE 24 mmol/L (22-29); CHLORIDE 104 mmol/L (98-107); CREATININE, SERUM 0.68 mg/dL (0.57-1.11); EST GLOMERULAR FILTRATION RATE > 60 ML/MIN (60-); GLUCOSE 121 mg/dL (74-118); POTASSIUM 3.5 mmol/L (3.5-5.1); SODIUM 139 mmol/L (136-145)
[2021-04-10 05:51] LABS: MAGNESIUM 1.5 MG/DL (1.3-2.1); PHOSPHORUS 2.1 MG/DL (2.3-4.7)
[2021-04-10] MEDS: INSULIN REGULAR, HUMAN 100 UNIT/1 ML 3ML VIAL SQ SCH ×4 (06:00→17:14)
[2021-04-10] MEDS: CEFEPIME HCL 1GM 1 GM in SODIUM CHLORIDE 0.9% 50ML 50 ML IV SCH (06:00)
[2021-04-10 06:53] LABS: ANISOCYTOSIS SLIGHT; LYMPHOCYTES % (MANUAL) 9 % (19-48); MONOCYTES % (MANUAL) 1 % (3.4-9.0); MYELOCYTES % (MANUAL) 1 % (0-0); NEUTROPHILS % (MANUAL) 89 % (40-74); PLATELET ESTIMATE MODERATELY DECREASED; PLATELET MORPHOLOGY COMMENT NORMAL
[2021-04-10 06:54] LABS: POLYCHROMASIA FEW
[2021-04-10 06:55] LABS: HYPOCHROMASIA SLIGHT; RBC MORPHOLOGY COMMENT NORMAL
[2021-04-10] MEDS: FENTANYL 2000MCG/NS 250 250 ML IV SCH (07:18)
[2021-04-10] MEDS: LEVETIRACETAM 500MG/5ML VIAL 750 MG in SODIUM CHLORIDE 0.9% 100 ML 100 ML IV SCH (07:59)
[2021-04-10] MEDS: PANTOPRAZOLE 40 MG 10ML VIAL IV SCH ×2 (08:36→16:43)
[2021-04-10] MEDS: HEPARIN SOD (PORCINE) 5,000 UNIT/ML VIAL SC SCH ×2 (08:37→21:33)
[2021-04-10] MEDS ORDERED: POTASSIUM CHLORIDE 20MEQ/100ML 200 ML IV ONE (14:45)
[2021-04-10] MEDS ORDERED: MAGNESIUM SULFATE 2GM/50ML 50 ML IV ONE (15:00)
[2021-04-10] MEDS ORDERED: POTASSIUM PHOSPHATE 30 MM in SODIUM CHLORIDE 0.9% 250ML 250 ML IV ONE (16:00)
[2021-04-10] MEDS: CENTRAL TPN FORMULA 1 BAG IV SCH (20:40)
[2021-04-11] VITALS (24 sets, daily range): BP systolic 80–141; BP diastolic 47–86
[2021-04-11] MEDS: SODIUM CHLORIDE 0.9% 250ML IRRIG IR SCH ×6 (03:15→23:09)
[2021-04-11 05:51] LABS: BASOPHILS % 0.3 % (0.0-1.0); EOSINOPHILS # (AUTO) 0.1 (0.0-0.4); EOSINOPHILS % 0.4 % (0.0-6.0); HEMATOCRIT 25.1 % (34.2-44.1); HEMOGLOBIN 8.4 g/dL (12.0-16.0); LYMPHOCYTES # (AUTO) 0.5 (1.0-3.2); LYMPHOCYTES % 3.3 % (18.0-39.1); MEAN CORPUSCULAR HEMOGLOBIN 30.5 pg (28-32); MEAN CORPUSCULAR HGB CONC 33.5 g/dL (31-35); MEAN CORPUSCULAR VOLUME 91.3 fL (81-99); MONOCYTES # (AUTO) 0.2 (0.2-0.8); MONOCYTES % 1.4 % (4.4-11.3); NEUTROPHILS # (AUTO) 13.7 (2.1-6.9); NEUTROPHILS % 89.7 % (38.7-80.0); PLATELET COUNT 52 x10e3/uL (140-360); RED BLOOD COUNT 2.75 x10e6/uL (3.6-5.1); RED CELL DISTRIBUTION WIDTH 17.4 % (11.7-14.4)
[2021-04-11] MEDS: INSULIN REGULAR, HUMAN 100 UNIT/1 ML 3ML VIAL SQ SCH ×4 (06:00→17:58)
[2021-04-11 06:15] LABS: ALANINE AMINOTRANSFERASE 28 IU/L (0-55); ALBUMIN 1.3 g/dL (3.5-5.0); ALBUMIN/GLOBULIN RATIO 0.3 (0.8-2.0); ALKALINE PHOSPHATASE 230 IU/L (40-150); ANION GAP 15.2 mmol/L (8-16); BLOOD UREA NITROGEN 77 mg/dL (7-26); BUN/CREATININE RATIO 103 (6-25); CALCIUM 7.8 mg/dL (8.4-10.2); CARBON DIOXIDE 21 mmol/L (22-29); CHLORIDE 105 mmol/L (98-107); CREATININE, SERUM 0.75 mg/dL (0.57-1.11); EST GLOMERULAR FILTRATION RATE > 60 ML/MIN (60-); GLUCOSE 95 mg/dL (74-118); POTASSIUM 4.2 mmol/L (3.5-5.1); SODIUM 137 mmol/L (136-145)
[2021-04-11 06:36] LABS: MAGNESIUM 1.9 MG/DL (1.3-2.1); PHOSPHORUS 4.1 MG/DL (2.3-4.7)
[2021-04-11] MEDS: FENTANYL 2000MCG/NS 250 250 ML IV SCH (07:41)
[2021-04-11] MEDS: LEVETIRACETAM 500MG/5ML VIAL 750 MG in SODIUM CHLORIDE 0.9% 100 ML 100 ML IV SCH (08:07)
[2021-04-11] MEDS: PANTOPRAZOLE 40 MG 10ML VIAL IV SCH ×2 (08:07→16:20)
[2021-04-11] MEDS: HEPARIN SOD (PORCINE) 5,000 UNIT/ML VIAL SC SCH ×2 (08:07→21:07)
[2021-04-11 08:54] LABS: BAND NEUTROPHILS % (MANUAL) 2 %; LYMPHOCYTES % (MANUAL) 3 % (19-48); METAMYELOCYTES % (MANUAL) 2 % (0-0); MONOCYTES % (MANUAL) 1 % (3.4-9.0); NEUTROPHILS % (MANUAL) 92 % (40-74)
[2021-04-11 08:55] LABS: PLATELET ESTIMATE MARKEDLY DECREASED; PLATELET MORPHOLOGY COMMENT FEW LARGE; POLYCHROMASIA FEW; RBC MORPHOLOGY COMMENT NORMAL
[2021-04-11] MEDS ORDERED: ALBUMIN 25% 12.5GM 0.25 GM/ML BTL IV PRN ×2 (09:30→09:45)
[2021-04-11] MEDS ORDERED: HEPARIN SOD (PORCINE) 1000 UNIT/ML SDV IV PRN (09:30)
[2021-04-11] MEDS ORDERED: SODIUM CHLORIDE 0.9% 1000ML 2,000 ML IV PRN (09:30)
[2021-04-11] MEDS ORDERED: SODIUM CHLORIDE 0.9% 250ML 500 ML IV PRN (09:30)
[2021-04-11] MEDS ORDERED: ALBUMIN 25% 25GM 100ML 0.25 GM/ML BTL IV PRN (09:45)
[2021-04-11] MEDS: NOREPINEPHRINE 8 MG/D5W 250 ML 250 ML IV SCH ×2 (12:59→16:46)
[2021-04-11] MEDS: ACETAMINOPHEN 650 MG SUPP PR PRN ×2 (13:19→22:16)
[2021-04-11] MEDS: CEFEPIME HCL 1GM 1 GM in SODIUM CHLORIDE 0.9% 50ML 50 ML IV SCH ×2 (13:56→21:07)
[2021-04-11] MEDS ORDERED: CEFEPIME HCL 1 GM VIAL IV SCH (14:00)
[2021-04-11] MEDS: CLINDAMYCIN PHOS 900MG/ 50ML 50 ML IV SCH (17:43)
[2021-04-11] MEDS: CENTRAL TPN FORMULA 1 BAG IV SCH (21:07)
[2021-04-12] VITALS (25 sets, daily range): BP systolic 103–129; BP diastolic 50–77
[2021-04-12] MEDS: CLINDAMYCIN PHOS 900MG/ 50ML 50 ML IV SCH ×4 (00:06→17:22)
[2021-04-12] MEDS: SODIUM CHLORIDE 0.9% 250ML IRRIG IR SCH ×6 (03:30→23:39)
[2021-04-12 05:31] LABS: BASOPHILS # (AUTO) 0.1 (0.0-0.1); BASOPHILS % 0.6 % (0.0-1.0); EOSINOPHILS # (AUTO) 0.1 (0.0-0.4); EOSINOPHILS % 0.3 % (0.0-6.0); HEMATOCRIT 23.2 % (34.2-44.1); HEMOGLOBIN 7.8 g/dL (12.0-16.0); LYMPHOCYTES # (AUTO) 0.6 (1.0-3.2); LYMPHOCYTES % 3.1 % (18.0-39.1); MEAN CORPUSCULAR HEMOGLOBIN 30.6 pg (28-32); MEAN CORPUSCULAR HGB CONC 33.6 g/dL (31-35); MONOCYTES # (AUTO) 0.4 (0.2-0.8); MONOCYTES % 2.2 % (4.4-11.3); NEUTROPHILS # (AUTO) 17.4 (2.1-6.9); NEUTROPHILS % 89.3 % (38.7-80.0); PLATELET COUNT 52 x10e3/uL (140-360); RED BLOOD COUNT 2.55 x10e6/uL (3.6-5.1); RED CELL DISTRIBUTION WIDTH 17.2 % (11.7-14.4)
[2021-04-12] MEDS: CEFEPIME HCL 1GM 1 GM in SODIUM CHLORIDE 0.9% 50ML 50 ML IV SCH ×3 (05:55→21:07)
[2021-04-12] MEDS: INSULIN REGULAR, HUMAN 100 UNIT/1 ML 3ML VIAL SQ SCH ×4 (06:00→17:27)
[2021-04-12 06:06] LABS: ALANINE AMINOTRANSFERASE 29 IU/L (0-55); ALBUMIN 1.2 g/dL (3.5-5.0); ALBUMIN/GLOBULIN RATIO 0.3 (0.8-2.0); ALKALINE PHOSPHATASE 203 IU/L (40-150); BLOOD UREA NITROGEN 49 mg/dL (7-26); BUN/CREATININE RATIO 77 (6-25); CALCIUM 7.7 mg/dL (8.4-10.2); CARBON DIOXIDE 24 mmol/L (22-29); CHLORIDE 104 mmol/L (98-107); CREATININE, SERUM 0.64 mg/dL (0.57-1.11); EST GLOMERULAR FILTRATION RATE > 60 ML/MIN (60-); GLUCOSE 146 mg/dL (74-118); SODIUM 135 mmol/L (136-145)
[2021-04-12] MEDS: FENTANYL 2000MCG/NS 250 250 ML IV SCH ×2 (08:00→15:07)
[2021-04-12] MEDS: HEPARIN SOD (PORCINE) 5,000 UNIT/ML VIAL SC SCH ×2 (08:14→21:07)
[2021-04-12] MEDS: PANTOPRAZOLE 40 MG 10ML VIAL IV SCH ×2 (08:14→17:22)
[2021-04-12] MEDS: ARTIFICIAL TEARS (OPTH) 15 ML BTL OU PRN (08:15)
[2021-04-12] MEDS: LEVETIRACETAM 500MG/5ML VIAL 750 MG in SODIUM CHLORIDE 0.9% 100 ML 100 ML IV SCH (09:08)
[2021-04-12] MEDS: NOREPINEPHRINE 8 MG/D5W 250 ML 250 ML IV SCH (09:49)
[2021-04-12 09:53] LABS: BAND NEUTROPHILS % (MANUAL) 5 %; LYMPHOCYTES % (MANUAL) 5 % (19-48); MONOCYTES % (MANUAL) 4 % (3.4-9.0); NEUTROPHILS % (MANUAL) 85 % (40-74); PLATELET ESTIMATE MARKEDLY DECREASED; PLATELET MORPHOLOGY COMMENT NORMAL
[2021-04-12 09:54] LABS: TOXIC GRANULATION SLIGHT
[2021-04-12 10:21] LABS: ABG HCO3 23 mmol/L (22-26); ABG PCO2 36 mmHg (35-45); ABG PH 7.41 (7.35-7.45); ABG PO2 70 mmHg (80-105); ABG TCO2 24
[2021-04-12] MEDS: ACETAMINOPHEN 650 MG SUPP PR PRN (16:19)
[2021-04-12] MEDS: CENTRAL TPN FORMULA 1 BAG IV SCH (19:41)
[2021-04-13] VITALS (26 sets, daily range): BP systolic 82–158; BP diastolic 45–78
[2021-04-13] MEDS: CLINDAMYCIN PHOS 900MG/ 50ML 50 ML IV SCH ×5 (00:25→23:25)
[2021-04-13] MEDS: SODIUM CHLORIDE 0.9% 250ML IRRIG IR SCH ×7 (03:16→23:30)
[2021-04-13 04:47] LABS: BASOPHILS # (AUTO) 0.1 (0.0-0.1); BASOPHILS % 0.4 % (0.0-1.0); EOSINOPHILS # (AUTO) 0.1 (0.0-0.4); EOSINOPHILS % 0.6 % (0.0-6.0); LYMPHOCYTES # (AUTO) 0.5 (1.0-3.2); LYMPHOCYTES % 3.9 % (18.0-39.1); MEAN CORPUSCULAR HEMOGLOBIN 30.5 pg (28-32); MEAN CORPUSCULAR HGB CONC 32.7 g/dL (31-35); MEAN CORPUSCULAR VOLUME 93.3 fL (81-99); MONOCYTES # (AUTO) 0.3 (0.2-0.8); MONOCYTES % 2.2 % (4.4-11.3); NEUTROPHILS # (AUTO) 11.6 (2.1-6.9); NEUTROPHILS % 88.3 % (38.7-80.0); PLATELET COUNT 56 x10e3/uL (140-360); RED BLOOD COUNT 2.23 x10e6/uL (3.6-5.1); RED CELL DISTRIBUTION WIDTH 17.4 % (11.7-14.4)
[2021-04-13 04:51] LABS: HEMATOCRIT 20.8 % (34.2-44.1); HEMOGLOBIN 6.8 g/dL (12.0-16.0)
[2021-04-13 04:58] LABS: INR 1.02
[2021-04-13 05:09] LABS: ALANINE AMINOTRANSFERASE 30 IU/L (0-55); ALBUMIN 1.2 g/dL (3.5-5.0); ALBUMIN/GLOBULIN RATIO 0.3 (0.8-2.0); ALKALINE PHOSPHATASE 197 IU/L (40-150); ANION GAP 15.4 mmol/L (8-16); BLOOD UREA NITROGEN 71 mg/dL (7-26); BUN/CREATININE RATIO 88 (6-25); CALCIUM 7.8 mg/dL (8.4-10.2); CARBON DIOXIDE 21 mmol/L (22-29); CHLORIDE 104 mmol/L (98-107); CREATININE, SERUM 0.81 mg/dL (0.57-1.11); EST GLOMERULAR FILTRATION RATE > 60 ML/MIN (60-); GLUCOSE 112 mg/dL (74-118); POTASSIUM 4.4 mmol/L (3.5-5.1); SODIUM 136 mmol/L (136-145)
[2021-04-13 05:29] LABS: MAGNESIUM 1.8 MG/DL (1.3-2.1); PHOSPHORUS 2.5 MG/DL (2.3-4.7)
[2021-04-13] MEDS: CEFEPIME HCL 1GM 1 GM in SODIUM CHLORIDE 0.9% 50ML 50 ML IV SCH ×3 (05:29→22:30)
[2021-04-13] MEDS: INSULIN REGULAR, HUMAN 100 UNIT/1 ML 3ML VIAL SQ SCH ×4 (06:00→18:00)
[2021-04-13] MEDS ORDERED: SODIUM CHLORIDE 0.9% 250ML 250 ML IV ONE (06:15)
[2021-04-13] MEDS: FENTANYL 2000MCG/NS 250 250 ML IV SCH ×3 (08:00→23:25)
[2021-04-13] MEDS: LEVETIRACETAM 500MG/5ML VIAL 500 MG in SODIUM CHLORIDE 0.9% 100 ML 100 ML IV SCH ×2 (09:00→10:48)
[2021-04-13] MEDS: HEPARIN SOD (PORCINE) 5,000 UNIT/ML VIAL SC SCH ×2 (09:00→21:30)
[2021-04-13] MEDS ORDERED: FENTANYL 2000MCG/NS 250 250 ML ONE (09:56)
[2021-04-13 10:03] LABS: BAND NEUTROPHILS % (MANUAL) 4 %; LYMPHOCYTES % (MANUAL) 7 % (19-48); MONOCYTES % (MANUAL) 1 % (3.4-9.0); MYELOCYTES % (MANUAL) 1 % (0-0); NEUTROPHILS % (MANUAL) 87 % (40-74); RBC MORPHOLOGY COMMENT NORMAL
[2021-04-13 10:04] LABS: ANISOCYTOSIS SLIG; MICROCYTOSIS SLIG; PLATELET ESTIMATE MARKEDLY DECREASED; PLATELET MORPHOLOGY COMMENT NORMAL; POIKILOCYTOSIS SLIGHT
[2021-04-13] MEDS: PANTOPRAZOLE 40 MG 10ML VIAL IV SCH ×2 (10:40→17:00)
[2021-04-13] MEDS: ACETAMINOPHEN 650 MG SUPP PR PRN (10:52)
[2021-04-13] MEDS: NOREPINEPHRINE 8 MG/D5W 250 ML 250 ML IV SCH ×2 (13:30→17:47)
[2021-04-13 16:11] LABS: ABG HCO3 20 mmol/L (22-26); ABG PCO2 41 mmHg (35-45); ABG PH 7.29 (7.35-7.45); ABG PO2 94 mmHg (80-105); ABG TCO2 21
[2021-04-13] MEDS ORDERED: CEFEPIME HCL 1 GM VIAL ONE (17:39)
[2021-04-13] MEDS: CENTRAL TPN FORMULA 1 BAG IV SCH (20:15)
[2021-04-14] VITALS (27 sets, daily range): BP systolic 81–146; BP diastolic 44–91
[2021-04-14] MEDS: SODIUM CHLORIDE 0.9% 250ML IRRIG IR SCH ×5 (03:05→19:30)
[2021-04-14 05:39] LABS: BASOPHILS % 0.3 % (0.0-1.0); EOSINOPHILS # (AUTO) 0.1 (0.0-0.4); EOSINOPHILS % 0.9 % (0.0-6.0); HEMATOCRIT 25.2 % (34.2-44.1); HEMOGLOBIN 8.1 g/dL (12.0-16.0); LYMPHOCYTES # (AUTO) 0.4 (1.0-3.2); LYMPHOCYTES % 3.3 % (18.0-39.1); MEAN CORPUSCULAR HEMOGLOBIN 30.6 pg (28-32); MEAN CORPUSCULAR HGB CONC 32.1 g/dL (31-35); MEAN CORPUSCULAR VOLUME 95.1 fL (81-99); MONOCYTES # (AUTO) 0.4 (0.2-0.8); MONOCYTES % 3.3 % (4.4-11.3); NEUTROPHILS # (AUTO) 11.4 (2.1-6.9); NEUTROPHILS % 86.7 % (38.7-80.0); PLATELET COUNT 54 x10e3/uL (140-360); RED BLOOD COUNT 2.65 x10e6/uL (3.6-5.1); RED CELL DISTRIBUTION WIDTH 16.5 % (11.7-14.4)
[2021-04-14] MEDS: INSULIN REGULAR, HUMAN 100 UNIT/1 ML 3ML VIAL SQ SCH ×4 (06:00→17:22)
[2021-04-14] MEDS: CEFEPIME HCL 1GM 1 GM in SODIUM CHLORIDE 0.9% 50ML 50 ML IV SCH (06:00)
[2021-04-14 06:10] LABS: ALBUMIN 1.1 g/dL (3.5-5.0); ALBUMIN/GLOBULIN RATIO 0.2 (0.8-2.0); CALCIUM 8.4 mg/dL (8.4-10.2); CREATININE, SERUM 1.03 mg/dL (0.57-1.11)
[2021-04-14] MEDS: CLINDAMYCIN PHOS 900MG/ 50ML 50 ML IV SCH ×2 (06:40→11:28)
[2021-04-14] MEDS: HEPARIN SOD (PORCINE) 5,000 UNIT/ML VIAL SC SCH ×2 (08:11→21:00)
[2021-04-14] MEDS: PANTOPRAZOLE 40 MG 10ML VIAL IV SCH ×2 (08:29→17:00)
[2021-04-14 09:14] LABS: BAND NEUTROPHILS % (MANUAL) 3 %; LYMPHOCYTES % (MANUAL) 7 % (19-48); METAMYELOCYTES % (MANUAL) 1 % (0-0); MONOCYTES % (MANUAL) 1 % (3.4-9.0); NEUTROPHILS % (MANUAL) 88 % (40-74); PLATELET ESTIMATE MARKEDLY DECREASED; PLATELET MORPHOLOGY COMMENT NORMAL
[2021-04-14] MEDS: FENTANYL 2000MCG/NS 250 250 ML IV SCH ×2 (12:27→21:15)
[2021-04-14] MEDS: TRIMETHOPRIM/SULFAMETHOXAZOLE 160 MG in DEXTROSE 5% 250ML 250 ML IV SCH ×2 (14:00→22:02)
[2021-04-14] MEDS ORDERED: CENTRAL TPN FORMULA 1 BAG IV SCH (20:00)
[2021-04-14] MEDS ORDERED: ONDANSETRON HCL INJ 2MG/ML 2ML 2 MG/ML VIAL IV PRN (21:00)
[2021-04-15] VITALS (26 sets, daily range): BP systolic 86–133; BP diastolic 42–88
[2021-04-15] MEDS: SODIUM CHLORIDE 0.9% 250ML IRRIG IR SCH ×6 (03:00→23:44)
[2021-04-15 05:49] LABS: BASOPHILS % 0.3 % (0.0-1.0); EOSINOPHILS # (AUTO) 0.1 (0.0-0.4); HEMOGLOBIN 7.3 g/dL (12.0-16.0); LYMPHOCYTES # (AUTO) 0.5 (1.0-3.2); LYMPHOCYTES % 3.6 % (18.0-39.1); MEAN CORPUSCULAR HEMOGLOBIN 30.3 pg (28-32); MEAN CORPUSCULAR HGB CONC 32.6 g/dL (31-35); MEAN CORPUSCULAR VOLUME 92.9 fL (81-99); MONOCYTES # (AUTO) 0.5 (0.2-0.8); MONOCYTES % 4.1 % (4.4-11.3); NEUTROPHILS % 80.6 % (38.7-80.0); PLATELET COUNT 55 x10e3/uL (140-360); RED BLOOD COUNT 2.41 x10e6/uL (3.6-5.1); RED CELL DISTRIBUTION WIDTH 16.6 % (11.7-14.4)
[2021-04-15 05:51] LABS: HEMATOCRIT 22.4 % (34.2-44.1)
[2021-04-15] MEDS: INSULIN REGULAR, HUMAN 100 UNIT/1 ML 3ML VIAL SQ SCH ×4 (06:00→18:09)
[2021-04-15 06:06] LABS: ALANINE AMINOTRANSFERASE 29 IU/L (0-55); ALBUMIN/GLOBULIN RATIO 0.2 (0.8-2.0); ALKALINE PHOSPHATASE 199 IU/L (40-150); ANION GAP 16.8 mmol/L (8-16); BLOOD UREA NITROGEN 54 mg/dL (7-26); BUN/CREATININE RATIO 71 (6-25); CALCIUM 8.1 mg/dL (8.4-10.2); CARBON DIOXIDE 21 mmol/L (22-29); CHLORIDE 100 mmol/L (98-107); CREATININE, SERUM 0.76 mg/dL (0.57-1.11); EST GLOMERULAR FILTRATION RATE > 60 ML/MIN (60-); GLUCOSE 112 mg/dL (74-118); POTASSIUM 3.8 mmol/L (3.5-5.1); SODIUM 134 mmol/L (136-145)
[2021-04-15] MEDS: TRIMETHOPRIM/SULFAMETHOXAZOLE 160 MG in DEXTROSE 5% 250ML 250 ML IV SCH ×3 (06:15→22:14)
[2021-04-15] MEDS: ARTIFICIAL TEARS (OPTH) 15 ML BTL OU PRN (07:30)
[2021-04-15 08:48] LABS: BAND NEUTROPHILS % (MANUAL) 6 %; EOSINOPHILS % (MANUAL) 1 % (0-7); LYMPHOCYTES % (MANUAL) 7 % (19-48); MONOCYTES % (MANUAL) 4 % (3.4-9.0); MYELOCYTES % (MANUAL) 1 % (0-0); NEUTROPHILS % (MANUAL) 81 % (40-74); PLATELET ESTIMATE MARKEDLY DECREASED; PLATELET MORPHOLOGY COMMENT NORMAL
[2021-04-15] MEDS: FENTANYL 2000MCG/NS 250 250 ML IV SCH ×2 (08:55→21:00)
[2021-04-15] MEDS: PANTOPRAZOLE 40 MG 10ML VIAL IV SCH ×2 (09:09→17:34)
[2021-04-15] MEDS: LEVETIRACETAM 500MG/5ML VIAL 500 MG in SODIUM CHLORIDE 0.9% 100 ML 100 ML IV SCH (09:09)
[2021-04-15] MEDS: HEPARIN SOD (PORCINE) 5,000 UNIT/ML VIAL SC SCH ×2 (09:15→20:45)
[2021-04-15] MEDS: NOREPINEPHRINE 8 MG/D5W 250 ML 250 ML IV SCH (11:46)
[2021-04-15 16:58] LABS: ABG HCO3 23 mmol/L (22-26); ABG PCO2 42 mmHg (35-45); ABG PH 7.34 (7.35-7.45); ABG PO2 62 mmHg (80-105); ABG TCO2 24
[2021-04-15] MEDS: ACETAMINOPHEN 650 MG SUPP PR PRN (20:00)
[2021-04-15] MEDS: CENTRAL TPN FORMULA 1 BAG IV SCH (20:00)
[2021-04-16] VITALS (25 sets, daily range): BP systolic 92–121; BP diastolic 50–64
[2021-04-16] MEDS: INSULIN REGULAR, HUMAN 100 UNIT/1 ML 3ML VIAL SQ SCH ×4 (00:14→18:00)
[2021-04-16] MEDS: NOREPINEPHRINE 8 MG/D5W 250 ML 250 ML IV SCH ×2 (01:10→14:04)
[2021-04-16] MEDS: SODIUM CHLORIDE 0.9% 250ML IRRIG IR SCH ×6 (03:53→23:28)
[2021-04-16] MEDS: FENTANYL 2000MCG/NS 250 250 ML IV SCH ×2 (05:18→18:12)
[2021-04-16 05:32] LABS: BASOPHILS % 0.3 % (0.0-1.0); EOSINOPHILS # (AUTO) 0.2 (0.0-0.4); EOSINOPHILS % 1.4 % (0.0-6.0); LYMPHOCYTES # (AUTO) 0.7 (1.0-3.2); LYMPHOCYTES % 6.1 % (18.0-39.1); MEAN CORPUSCULAR HEMOGLOBIN 30.1 pg (28-32); MEAN CORPUSCULAR HGB CONC 31.7 g/dL (31-35); MONOCYTES # (AUTO) 0.5 (0.2-0.8); MONOCYTES % 4.4 % (4.4-11.3); NEUTROPHILS % 78.2 % (38.7-80.0); PLATELET COUNT 80 x10e3/uL (140-360); RED BLOOD COUNT 2.19 x10e6/uL (3.6-5.1)
[2021-04-16 05:44] LABS: ALBUMIN/GLOBULIN RATIO 0.2 (0.8-2.0); ANION GAP 16.4 mmol/L (8-16); CALCIUM 8.5 mg/dL (8.4-10.2); CREATININE, SERUM 0.96 mg/dL (0.57-1.11); POTASSIUM 4.4 mmol/L (3.5-5.1)
[2021-04-16 05:50] LABS: HEMATOCRIT 20.8 % (34.2-44.1); HEMOGLOBIN 6.6 g/dL (12.0-16.0)
[2021-04-16] MEDS: TRIMETHOPRIM/SULFAMETHOXAZOLE 160 MG in DEXTROSE 5% 250ML 250 ML IV SCH ×3 (06:05→22:12)
[2021-04-16 06:16] LABS: MAGNESIUM 1.8 MG/DL (1.3-2.1); PHOSPHORUS 1.5 MG/DL (2.3-4.7)
[2021-04-16] MEDS ORDERED: SODIUM CHLORIDE 0.9% 250ML 250 ML IV ONE (06:45)
[2021-04-16 08:23] LABS: ANISOCYTOSIS SLIGHT; EOSINOPHILS % (MANUAL) 1 % (0-7); LYMPHOCYTES % (MANUAL) 4 % (19-48); MONOCYTES % (MANUAL) 3 % (3.4-9.0); MYELOCYTES % (MANUAL) 5 % (0-0); NEUTROPHILS % (MANUAL) 86 % (40-74); PLATELET ESTIMATE MODERATELY DECREASED; PLATELET MORPHOLOGY COMMENT NORMAL; TARGET CELLS FEW
[2021-04-16 08:24] LABS: POLYCHROMASIA FEW; RBC MORPHOLOGY COMMENT ABNORMAL
[2021-04-16] MEDS: PANTOPRAZOLE 40 MG 10ML VIAL IV SCH ×2 (08:35→16:50)
[2021-04-16] MEDS: LEVETIRACETAM 500MG/5ML VIAL 500 MG in SODIUM CHLORIDE 0.9% 100 ML 100 ML IV SCH (08:35)
[2021-04-16] MEDS ORDERED: HYDROMORPHONE 1MG/1ML INJ IV ONE (10:30)
[2021-04-16] MEDS ORDERED: POVIDONE IODINE 0.05% 0.05 % ML PO ONE (12:49)
[2021-04-16] MEDS ORDERED: SEVOFLURANE INHAL SOLN 250 ML PEN BTL ONE (12:49)
[2021-04-16] MEDS ORDERED: ROCURONIUM BROMIDE 10 MG/ML 5ML VIAL IV ONE (12:49)
[2021-04-16] MEDS: CENTRAL TPN FORMULA 1 BAG IV SCH (20:10)
[2021-04-16] MEDS: ACETAMINOPHEN 325 MG TAB PO PRN (23:27)
[2021-04-17] VITALS (15 sets, daily range): BP systolic 87–164; BP diastolic 50–77
[2021-04-17] MEDS: INSULIN REGULAR, HUMAN 100 UNIT/1 ML 3ML VIAL SQ SCH ×4 (00:21→18:02)
[2021-04-17] MEDS: SODIUM CHLORIDE 0.9% 250ML IRRIG IR SCH ×6 (03:33→23:08)
[2021-04-17] MEDS: NOREPINEPHRINE 8 MG/D5W 250 ML 250 ML IV SCH (03:34)
[2021-04-17 04:47] LABS: BASOPHILS # (AUTO) 0.1 (0.0-0.1); BASOPHILS % 0.5 % (0.0-1.0); EOSINOPHILS # (AUTO) 0.1 (0.0-0.4); EOSINOPHILS % 0.7 % (0.0-6.0); HEMATOCRIT 23.4 % (34.2-44.1); HEMOGLOBIN 7.5 g/dL (12.0-16.0); LYMPHOCYTES # (AUTO) 0.5 (1.0-3.2); LYMPHOCYTES % 3.5 % (18.0-39.1); MEAN CORPUSCULAR HEMOGLOBIN 30.6 pg (28-32); MEAN CORPUSCULAR HGB CONC 32.1 g/dL (31-35); MEAN CORPUSCULAR VOLUME 95.5 fL (81-99); MONOCYTES # (AUTO) 0.7 (0.2-0.8); MONOCYTES % 5.4 % (4.4-11.3); NEUTROPHILS # (AUTO) 10.5 (2.1-6.9); NEUTROPHILS % 79.8 % (38.7-80.0); PLATELET COUNT 99 x10e3/uL (140-360); RED BLOOD COUNT 2.45 x10e6/uL (3.6-5.1); RED CELL DISTRIBUTION WIDTH 16.4 % (11.7-14.4)
[2021-04-17 05:13] LABS: ALANINE AMINOTRANSFERASE 38 IU/L (0-55); ALBUMIN/GLOBULIN RATIO 0.2 (0.8-2.0); ALKALINE PHOSPHATASE 202 IU/L (40-150); ANION GAP 13.2 mmol/L (8-16); BLOOD UREA NITROGEN 44 mg/dL (7-26); BUN/CREATININE RATIO 56 (6-25); CALCIUM 8.5 mg/dL (8.4-10.2); CARBON DIOXIDE 23 mmol/L (22-29); CHLORIDE 102 mmol/L (98-107); CREATININE, SERUM 0.79 mg/dL (0.57-1.11); EST GLOMERULAR FILTRATION RATE > 60 ML/MIN (60-); GLUCOSE 133 mg/dL (74-118); POTASSIUM 4.2 mmol/L (3.5-5.1); SODIUM 134 mmol/L (136-145)
[2021-04-17] MEDS: TRIMETHOPRIM/SULFAMETHOXAZOLE 160 MG in DEXTROSE 5% 250ML 250 ML IV SCH ×3 (05:53→21:01)
[2021-04-17 06:39] LABS: BAND NEUTROPHILS % (MANUAL) 2 %; LYMPHOCYTES % (MANUAL) 5 % (19-48); MONOCYTES % (MANUAL) 5 % (3.4-9.0); MYELOCYTES % (MANUAL) 3 % (0-0); NEUTROPHILS % (MANUAL) 85 % (40-74)
[2021-04-17 06:40] LABS: ANISOCYTOSIS SLIGHT; PLATELET ESTIMATE SLIGHTLY DECREASED
[2021-04-17 06:41] LABS: PLATELET MORPHOLOGY COMMENT FEW LARGE; POLYCHROMASIA FEW; RBC MORPHOLOGY COMMENT ABNORMAL; TARGET CELLS FEW
[2021-04-17] MEDS: FENTANYL 2000MCG/NS 250 250 ML IV SCH (07:08)
[2021-04-17] MEDS: BALSAM PERU/CASTOR OIL 60 GM OINT...G. TP SCH (08:27)
[2021-04-17] MEDS: PANTOPRAZOLE 40 MG 10ML VIAL IV SCH ×2 (08:27→17:55)
[2021-04-17] MEDS: LEVETIRACETAM 500MG/5ML VIAL 500 MG in SODIUM CHLORIDE 0.9% 100 ML 100 ML IV SCH (08:27)
[2021-04-17] MEDS: COLLAGENASE 5 GM TUBE TP SCH (08:27)
[2021-04-17] MEDS: CENTRAL TPN FORMULA 1 BAG IV SCH (19:53)
[2021-04-18] VITALS (25 sets, daily range): BP systolic 73–131; BP diastolic 45–68
[2021-04-18] MEDS: INSULIN REGULAR, HUMAN 100 UNIT/1 ML 3ML VIAL SQ SCH ×4 (00:08→17:10)
[2021-04-18] MEDS: SODIUM CHLORIDE 0.9% 250ML IRRIG IR SCH ×6 (02:19→23:30)
[2021-04-18 04:51] LABS: BASOPHILS # (AUTO) 0.1 (0.0-0.1); BASOPHILS % 0.6 % (0.0-1.0); EOSINOPHILS # (AUTO) 0.1 (0.0-0.4); LYMPHOCYTES # (AUTO) 0.5 (1.0-3.2); MEAN CORPUSCULAR HEMOGLOBIN 31.8 pg (28-32); MEAN CORPUSCULAR HGB CONC 34.3 g/dL (31-35); MEAN CORPUSCULAR VOLUME 92.6 fL (81-99); MONOCYTES # (AUTO) 0.5 (0.2-0.8); MONOCYTES % 4.8 % (4.4-11.3); NEUTROPHILS # (AUTO) 7.1 (2.1-6.9); NEUTROPHILS % 74.6 % (38.7-80.0); PLATELET COUNT 94 x10e3/uL (140-360); RED BLOOD COUNT 2.17 x10e6/uL (3.6-5.1)
[2021-04-18 04:53] LABS: HEMATOCRIT 20.1 % (34.2-44.1); HEMOGLOBIN 6.9 g/dL (12.0-16.0)
[2021-04-18 04:54] LABS: MAGNESIUM 1.7 MG/DL (1.3-2.1)
[2021-04-18 05:29] LABS: ALBUMIN/GLOBULIN RATIO 0.2 (0.8-2.0); ANION GAP 16.5 mmol/L (8-16); CALCIUM 8.5 mg/dL (8.4-10.2); CREATININE, SERUM 0.95 mg/dL (0.57-1.11); POTASSIUM 4.5 mmol/L (3.5-5.1)
[2021-04-18 06:30] LABS: BAND NEUTROPHILS % (MANUAL) 2 %; EOSINOPHILS % (MANUAL) 1 % (0-7); LYMPHOCYTES % (MANUAL) 3 % (19-48); MONOCYTES % (MANUAL) 1 % (3.4-9.0); MYELOCYTES % (MANUAL) 9 % (0-0); NEUTROPHILS % (MANUAL) 84 % (40-74)
[2021-04-18 06:32] LABS: ANISOCYTOSIS SLIGHT; PLATELET ESTIMATE SLIGHTLY DECREASED; PLATELET MORPHOLOGY COMMENT NORMAL
[2021-04-18] MEDS: TRIMETHOPRIM/SULFAMETHOXAZOLE 160 MG in DEXTROSE 5% 250ML 250 ML IV SCH ×3 (06:32→23:30)
[2021-04-18 06:33] LABS: POLYCHROMASIA FEW; RBC MORPHOLOGY COMMENT ABNORMAL; TARGET CELLS FEW
[2021-04-18] MEDS: FENTANYL 2000MCG/NS 250 250 ML IV SCH (08:12)
[2021-04-18] MEDS: COLLAGENASE 5 GM TUBE TP SCH (08:27)
[2021-04-18] MEDS: PANTOPRAZOLE 40 MG 10ML VIAL IV SCH ×2 (08:27→17:10)
[2021-04-18] MEDS: LEVETIRACETAM 500MG/5ML VIAL 500 MG in SODIUM CHLORIDE 0.9% 100 ML 100 ML IV SCH (08:27)
[2021-04-18] MEDS: BALSAM PERU/CASTOR OIL 60 GM OINT...G. TP SCH (08:27)
[2021-04-18 09:48] LABS: ABG PCO2 52 mmHg (35-45); ABG PO2 60 mmHg (80-105)
[2021-04-18 09:49] LABS: ABG HCO3 20 mmol/L (22-26); ABG TCO2 22
[2021-04-18] MEDS: NOREPINEPHRINE 8 MG/D5W 250 ML 250 ML IV SCH (13:41)
[2021-04-18] MEDS: CENTRAL TPN FORMULA 1 BAG IV SCH (20:28)
[2021-04-19] VITALS (25 sets, daily range): BP systolic 82–125; BP diastolic 48–68
[2021-04-19] MEDS: SODIUM CHLORIDE 0.9% 250ML IRRIG IR SCH ×6 (03:30→23:45)
[2021-04-19] MEDS: INSULIN REGULAR, HUMAN 100 UNIT/1 ML 3ML VIAL SQ SCH ×4 (06:00→17:38)
[2021-04-19] MEDS: TRIMETHOPRIM/SULFAMETHOXAZOLE 160 MG in DEXTROSE 5% 250ML 250 ML IV SCH ×3 (06:16→22:00)
[2021-04-19 06:22] LABS: BASOPHILS # (AUTO) 0.1 (0.0-0.1); BASOPHILS % 0.6 % (0.0-1.0); EOSINOPHILS # (AUTO) 0.1 (0.0-0.4); EOSINOPHILS % 1.2 % (0.0-6.0); HEMATOCRIT 24.6 % (34.2-44.1); HEMOGLOBIN 8.1 g/dL (12.0-16.0); LYMPHOCYTES # (AUTO) 0.5 (1.0-3.2); LYMPHOCYTES % 4.4 % (18.0-39.1); MEAN CORPUSCULAR HEMOGLOBIN 30.1 pg (28-32); MEAN CORPUSCULAR HGB CONC 32.9 g/dL (31-35); MEAN CORPUSCULAR VOLUME 91.4 fL (81-99); MONOCYTES # (AUTO) 0.8 (0.2-0.8); NEUTROPHILS # (AUTO) 7.9 (2.1-6.9); NEUTROPHILS % 70.1 % (38.7-80.0); PLATELET COUNT 117 x10e3/uL (140-360); RED BLOOD COUNT 2.69 x10e6/uL (3.6-5.1); RED CELL DISTRIBUTION WIDTH 18.7 % (11.7-14.4)
[2021-04-19 06:42] LABS: ALBUMIN 1.1 g/dL (3.5-5.0); ALBUMIN/GLOBULIN RATIO 0.2 (0.8-2.0); ANION GAP 14.4 mmol/L (8-16); CALCIUM 8.9 mg/dL (8.4-10.2); CREATININE, SERUM 1.15 mg/dL (0.57-1.11)
[2021-04-19 06:43] LABS: POTASSIUM 5.4 mmol/L (3.5-5.1)
[2021-04-19 07:30] LABS: EOSINOPHILS % (MANUAL) 2 % (0-7); LYMPHOCYTES % (MANUAL) 6 % (19-48); MONOCYTES % (MANUAL) 5 % (3.4-9.0); MYELOCYTES % (MANUAL) 14 % (0-0); NEUTROPHILS % (MANUAL) 73 % (40-74); PLATELET ESTIMATE SLIGHTLY DECREASED; POLYCHROMASIA FEW
[2021-04-19 07:31] LABS: ANISOCYTOSIS MODERATE; HYPOCHROMASIA SLIGHT
[2021-04-19 07:32] LABS: PLATELET MORPHOLOGY COMMENT NORMAL; RBC MORPHOLOGY COMMENT ABNORMAL; TARGET CELLS FEW
[2021-04-19] MEDS: COLLAGENASE 5 GM TUBE TP SCH (09:00)
[2021-04-19] MEDS: LEVETIRACETAM 500MG/5ML VIAL 500 MG in SODIUM CHLORIDE 0.9% 100 ML 100 ML IV SCH (09:00)
[2021-04-19] MEDS: PANTOPRAZOLE 40 MG 10ML VIAL IV SCH ×2 (09:00→17:08)
[2021-04-19] MEDS: BALSAM PERU/CASTOR OIL 60 GM OINT...G. TP SCH (09:00)
[2021-04-19] MEDS: FENTANYL 2000MCG/NS 250 250 ML IV SCH (13:30)
[2021-04-19 15:48] LABS: ABG PH 7.37 (7.35-7.45)
[2021-04-19 15:49] LABS: ABG HCO3 23 mmol/L (22-26); ABG PCO2 41 mmHg (35-45); ABG PO2 103 mmHg (80-105); ABG TCO2 24
[2021-04-19] MEDS: NOREPINEPHRINE 8 MG/D5W 250 ML 250 ML IV SCH (17:08)
[2021-04-19] MEDS: CENTRAL TPN FORMULA 1 BAG IV SCH (20:00)
[2021-04-20] VITALS (17 sets, daily range): BP systolic 85–115; BP diastolic 45–63
[2021-04-20] MEDS: FENTANYL 2000MCG/NS 250 250 ML IV SCH ×2 (01:20→22:15)
[2021-04-20] MEDS: SODIUM CHLORIDE 0.9% 250ML IRRIG IR SCH ×6 (03:16→23:24)
[2021-04-20 05:39] LABS: BASOPHILS # (AUTO) 0.1 (0.0-0.1); BASOPHILS % 0.8 % (0.0-1.0); EOSINOPHILS # (AUTO) 0.1 (0.0-0.4); EOSINOPHILS % 1.1 % (0.0-6.0); HEMATOCRIT 22.1 % (34.2-44.1); HEMOGLOBIN 7.4 g/dL (12.0-16.0); LYMPHOCYTES # (AUTO) 0.7 (1.0-3.2); LYMPHOCYTES % 5.1 % (18.0-39.1); MEAN CORPUSCULAR HEMOGLOBIN 30.3 pg (28-32); MEAN CORPUSCULAR HGB CONC 33.5 g/dL (31-35); MEAN CORPUSCULAR VOLUME 90.6 fL (81-99); MONOCYTES # (AUTO) 0.8 (0.2-0.8); MONOCYTES % 6.2 % (4.4-11.3); NEUTROPHILS % 60.7 % (38.7-80.0); PLATELET COUNT 119 x10e3/uL (140-360); RED BLOOD COUNT 2.44 x10e6/uL (3.6-5.1); RED CELL DISTRIBUTION WIDTH 19.7 % (11.7-14.4)
[2021-04-20 05:53] LABS: ALBUMIN 1.1 g/dL (3.5-5.0); ALBUMIN/GLOBULIN RATIO 0.2 (0.8-2.0); ANION GAP 16.3 mmol/L (8-16); CALCIUM 8.3 mg/dL (8.4-10.2); CREATININE, SERUM 0.91 mg/dL (0.57-1.11); POTASSIUM 4.3 mmol/L (3.5-5.1)
[2021-04-20] MEDS: INSULIN REGULAR, HUMAN 100 UNIT/1 ML 3ML VIAL SQ SCH ×4 (06:00→17:36)
[2021-04-20 06:03] LABS: MAGNESIUM 1.9 MG/DL (1.3-2.1); PHOSPHORUS 1.7 MG/DL (2.3-4.7)
[2021-04-20] MEDS: TRIMETHOPRIM/SULFAMETHOXAZOLE 160 MG in DEXTROSE 5% 250ML 250 ML IV SCH ×3 (06:24→22:00)
[2021-04-20 06:32] LABS: BAND NEUTROPHILS % (MANUAL) 6 %; EOSINOPHILS % (MANUAL) 1 % (0-7); LYMPHOCYTES % (MANUAL) 7 % (19-48); METAMYELOCYTES % (MANUAL) 1 % (0-0); MONOCYTES % (MANUAL) 4 % (3.4-9.0); MYELOCYTES % (MANUAL) 25 % (0-0); NEUTROPHILS % (MANUAL) 56 % (40-74); NUCLEATED RED BLOOD CELLS 1
[2021-04-20 06:33] LABS: OVALOCYTES FEW; POLYCHROMASIA FEW; TARGET CELLS FEW
[2021-04-20 06:34] LABS: PLATELET ESTIMATE SLIGHTLY DECREASED; RBC MORPHOLOGY COMMENT ABNORMAL
[2021-04-20 06:35] LABS: PLATELET MORPHOLOGY COMMENT FEW GIANT
[2021-04-20] MEDS: LEVETIRACETAM 500MG/5ML VIAL 500 MG in SODIUM CHLORIDE 0.9% 100 ML 100 ML IV SCH (08:03)
[2021-04-20] MEDS: COLLAGENASE 5 GM TUBE TP SCH (08:03)
[2021-04-20] MEDS: BALSAM PERU/CASTOR OIL 60 GM OINT...G. TP SCH (08:03)
[2021-04-20] MEDS: PANTOPRAZOLE 40 MG 10ML VIAL IV SCH ×2 (08:03→17:35)
[2021-04-20] MEDS ORDERED: CENTRAL TPN FORMULA 1 BAG IV SCH (20:00)
[2021-04-21] VITALS (19 sets, daily range): BP systolic 94–123; BP diastolic 50–74
[2021-04-21] MEDS: NOREPINEPHRINE 8 MG/D5W 250 ML 250 ML IV SCH (03:00)
[2021-04-21] MEDS: SODIUM CHLORIDE 0.9% 250ML IRRIG IR SCH ×5 (03:15→23:15)
[2021-04-21 05:13] LABS: BASOPHILS # (AUTO) 0.2 (0.0-0.1); BASOPHILS % 0.8 % (0.0-1.0); EOSINOPHILS # (AUTO) 0.2 (0.0-0.4); EOSINOPHILS % 0.9 % (0.0-6.0); HEMOGLOBIN 7.4 g/dL (12.0-16.0); LYMPHOCYTES # (AUTO) 0.8 (1.0-3.2); LYMPHOCYTES % 3.9 % (18.0-39.1); MEAN CORPUSCULAR HEMOGLOBIN 29.6 pg (28-32); MEAN CORPUSCULAR VOLUME 89.6 fL (81-99); MONOCYTES # (AUTO) 1.2 (0.2-0.8); MONOCYTES % 6.4 % (4.4-11.3); NEUTROPHILS # (AUTO) 13.9 (2.1-6.9); NEUTROPHILS % 71.1 % (38.7-80.0); PLATELET COUNT 159 x10e3/uL (140-360); RED CELL DISTRIBUTION WIDTH 21.1 % (11.7-14.4)
[2021-04-21 05:29] LABS: ALBUMIN 1.1 g/dL (3.5-5.0); ALBUMIN/GLOBULIN RATIO 0.2 (0.8-2.0); ANION GAP 15.7 mmol/L (8-16); CALCIUM 8.8 mg/dL (8.4-10.2); CREATININE, SERUM 1.11 mg/dL (0.57-1.11); POTASSIUM 4.7 mmol/L (3.5-5.1)
[2021-04-21 05:40] LABS: HEMATOCRIT 22.4 % (34.2-44.1)
[2021-04-21] MEDS: INSULIN REGULAR, HUMAN 100 UNIT/1 ML 3ML VIAL SQ SCH ×4 (06:00→18:00)
[2021-04-21] MEDS: TRIMETHOPRIM/SULFAMETHOXAZOLE 160 MG in DEXTROSE 5% 250ML 250 ML IV SCH ×3 (06:51→21:59)
[2021-04-21] MEDS: COLLAGENASE 5 GM TUBE TP SCH (07:58)
[2021-04-21] MEDS: BALSAM PERU/CASTOR OIL 60 GM OINT...G. TP SCH (07:58)
[2021-04-21] MEDS: LEVETIRACETAM 500MG/5ML VIAL 500 MG in SODIUM CHLORIDE 0.9% 100 ML 100 ML IV SCH (09:00)
[2021-04-21] MEDS: PANTOPRAZOLE 40 MG 10ML VIAL IV SCH ×2 (09:00→17:00)
[2021-04-21 09:46] LABS: BAND NEUTROPHILS % (MANUAL) 4 %; EOSINOPHILS % (MANUAL) 1 % (0-7); LYMPHOCYTES % (MANUAL) 5 % (19-48); METAMYELOCYTES % (MANUAL) 1 % (0-0); MONOCYTES % (MANUAL) 3 % (3.4-9.0); MYELOCYTES % (MANUAL) 20 % (0-0); NEUTROPHILS % (MANUAL) 66 % (40-74)
[2021-04-21] MEDS ORDERED: LORAZEPAM INJ 2 MG/ML VIAL IV ONE (14:45)
[2021-04-21] MEDS ORDERED: LORAZEPAM INJ 2 MG/ML VIAL ONE (14:51)
[2021-04-21] MEDS ORDERED: EPOETIN ALFA-EPBX 10,000 UNIT/ML VIAL SC ONE (17:00)
[2021-04-21] MEDS ORDERED: CENTRAL TPN FORMULA 1 BAG IV SCH (20:00)
[2021-04-22] VITALS (17 sets, daily range): BP systolic 90–108; BP diastolic 46–56
[2021-04-22] MEDS: SODIUM CHLORIDE 0.9% 250ML IRRIG IR SCH ×6 (03:15→23:37)
[2021-04-22] MEDS ORDERED: LORAZEPAM INJ 2 MG/ML VIAL IV PRN (05:15)
[2021-04-22] MEDS: INSULIN REGULAR, HUMAN 100 UNIT/1 ML 3ML VIAL SQ SCH ×4 (06:00→18:00)
[2021-04-22 06:35] LABS: BASOPHILS # (AUTO) 0.1 (0.0-0.1); BASOPHILS % 0.5 % (0.0-1.0); EOSINOPHILS # (AUTO) 0.2 (0.0-0.4); EOSINOPHILS % 0.7 % (0.0-6.0); LYMPHOCYTES # (AUTO) 0.7 (1.0-3.2); LYMPHOCYTES % 2.6 % (18.0-39.1); MEAN CORPUSCULAR HEMOGLOBIN 30.2 pg (28-32); MEAN CORPUSCULAR HGB CONC 32.7 g/dL (31-35); MEAN CORPUSCULAR VOLUME 92.2 fL (81-99); MONOCYTES # (AUTO) 1.3 (0.2-0.8); MONOCYTES % 5.1 % (4.4-11.3); NEUTROPHILS # (AUTO) 17.8 (2.1-6.9); NEUTROPHILS % 68.8 % (38.7-80.0); PLATELET COUNT 162 x10e3/uL (140-360); RED BLOOD COUNT 2.32 x10e6/uL (3.6-5.1); RED CELL DISTRIBUTION WIDTH 22.2 % (11.7-14.4)
[2021-04-22 06:41] LABS: HEMATOCRIT 21.4 % (34.2-44.1)
[2021-04-22] MEDS: TRIMETHOPRIM/SULFAMETHOXAZOLE 160 MG in DEXTROSE 5% 250ML 250 ML IV SCH ×3 (06:41→22:00)
[2021-04-22 06:57] LABS: ALANINE AMINOTRANSFERASE 76 IU/L (0-55); ALBUMIN/GLOBULIN RATIO 0.2 (0.8-2.0); ALKALINE PHOSPHATASE 301 IU/L (40-150); ANION GAP 14.3 mmol/L (8-16); BLOOD UREA NITROGEN 53 mg/dL (7-26); BUN/CREATININE RATIO 64 (6-25); CALCIUM 9.1 mg/dL (8.4-10.2); CARBON DIOXIDE 24 mmol/L (22-29); CHLORIDE 98 mmol/L (98-107); CREATININE, SERUM 0.83 mg/dL (0.57-1.11); EST GLOMERULAR FILTRATION RATE > 60 ML/MIN (60-); GLUCOSE 98 mg/dL (74-118); POTASSIUM 3.3 mmol/L (3.5-5.1); SODIUM 133 mmol/L (136-145)
[2021-04-22 07:48] LABS: % IRON SATURATION 17 % (15-50); IRON 28 ug/dL (50-170); TOTAL IRON BINDING CAPACITY 161 ug/dL (261-478); TRANSFERRIN 115 mg/dL (180-382)
[2021-04-22] MEDS: BALSAM PERU/CASTOR OIL 60 GM OINT...G. TP SCH (08:09)
[2021-04-22] MEDS: LEVETIRACETAM 500MG/5ML VIAL 500 MG in SODIUM CHLORIDE 0.9% 100 ML 100 ML IV SCH (08:09)
[2021-04-22] MEDS: COLLAGENASE 5 GM TUBE TP SCH (08:09)
[2021-04-22] MEDS: PANTOPRAZOLE 40 MG 10ML VIAL IV SCH ×2 (08:09→17:31)
[2021-04-22] MEDS: NOREPINEPHRINE 8 MG/D5W 250 ML 250 ML IV SCH ×2 (08:11→12:02)
[2021-04-22 08:37] LABS: BAND NEUTROPHILS % (MANUAL) 5 %; EOSINOPHILS % (MANUAL) 1 % (0-7); LYMPHOCYTES % (MANUAL) 6 % (19-48); METAMYELOCYTES % (MANUAL) 1 % (0-0); MONOCYTES % (MANUAL) 3 % (3.4-9.0); MYELOCYTES % (MANUAL) 22 % (0-0); NEUTROPHILS % (MANUAL) 62 % (40-74); NUCLEATED RED BLOOD CELLS 1
[2021-04-22] MEDS ORDERED: ATROPINE SULFATE 0.1 MG/ML 10ML SYR ONE (10:55)
[2021-04-22] MEDS ORDERED: ATROPINE SULFATE 1 MG/ML VIAL IV ONE (11:00)
[2021-04-22] MEDS: FENTANYL 2000MCG/NS 250 250 ML IV SCH (15:51)
[2021-04-22] MEDS ORDERED: CENTRAL TPN FORMULA 1 BAG IV SCH (20:00)
[2021-04-23] VITALS (26 sets, daily range): BP systolic 84–119; BP diastolic 47–56
[2021-04-23] MEDS: SODIUM CHLORIDE 0.9% 250ML IRRIG IR SCH ×3 (04:21→11:01)
[2021-04-23] MEDS: INSULIN REGULAR, HUMAN 100 UNIT/1 ML 3ML VIAL SQ SCH ×3 (06:00→11:23)
[2021-04-23] MEDS: TRIMETHOPRIM/SULFAMETHOXAZOLE 160 MG in DEXTROSE 5% 250ML 250 ML IV SCH ×3 (06:44→22:00)
[2021-04-23 07:07] LABS: BASOPHILS # (AUTO) 0.2 (0.0-0.1); BASOPHILS % 0.6 % (0.0-1.0); EOSINOPHILS # (AUTO) 0.2 (0.0-0.4); EOSINOPHILS % 0.6 % (0.0-6.0); HEMATOCRIT 21.5 % (34.2-44.1); HEMOGLOBIN 7.1 g/dL (12.0-16.0); LYMPHOCYTES # (AUTO) 0.9 (1.0-3.2); MEAN CORPUSCULAR HEMOGLOBIN 30.2 pg (28-32); MEAN CORPUSCULAR VOLUME 91.5 fL (81-99); MONOCYTES # (AUTO) 1.4 (0.2-0.8); MONOCYTES % 4.8 % (4.4-11.3); NEUTROPHILS # (AUTO) 19.6 (2.1-6.9); NEUTROPHILS % 67.7 % (38.7-80.0); PLATELET COUNT 199 x10e3/uL (140-360); RED BLOOD COUNT 2.35 x10e6/uL (3.6-5.1); RED CELL DISTRIBUTION WIDTH 23.3 % (11.7-14.4)
[2021-04-23 07:31] LABS: ALBUMIN/GLOBULIN RATIO 0.2 (0.8-2.0); ANION GAP 16.7 mmol/L (8-16); CALCIUM 9.1 mg/dL (8.4-10.2); CREATININE, SERUM 1.02 mg/dL (0.57-1.11); POTASSIUM 3.7 mmol/L (3.5-5.1)
[2021-04-23] MEDS: BALSAM PERU/CASTOR OIL 60 GM OINT...G. TP SCH (08:21)
[2021-04-23] MEDS: COLLAGENASE 5 GM TUBE TP SCH (08:21)
[2021-04-23] MEDS: PANTOPRAZOLE 40 MG 10ML VIAL IV SCH ×2 (08:28→16:33)
[2021-04-23] MEDS: LEVETIRACETAM 500MG/5ML VIAL 500 MG in SODIUM CHLORIDE 0.9% 100 ML 100 ML IV SCH (08:28)
[2021-04-23 09:24] LABS: BAND NEUTROPHILS % (MANUAL) 1 %; LYMPHOCYTES % (MANUAL) 6 % (19-48); MONOCYTES % (MANUAL) 6 % (3.4-9.0); MYELOCYTES % (MANUAL) 28 % (0-0); NEUTROPHILS % (MANUAL) 59 % (40-74); NUCLEATED RED BLOOD CELLS 1
[2021-04-23 09:28] LABS: PLATELET ESTIMATE ADEQUATE
[2021-04-23 09:29] LABS: ANISOCYTOSIS MODERATE; POLYCHROMASIA FEW; TARGET CELLS FEW
[2021-04-23 09:30] LABS: PLATELET MORPHOLOGY COMMENT FEW GIANT; RBC MORPHOLOGY COMMENT ABNORMAL
[2021-04-23 10:46] LABS: ABG HCO3 23 mmol/L (22-26); ABG PCO2 52 mmHg (35-45); ABG PH 7.24 (7.35-7.45); ABG PO2 68 mmHg (80-105); ABG TCO2 24
[2021-04-23] MEDS: FENTANYL 2000MCG/NS 250 250 ML IV SCH (11:01)
[2021-04-23] MEDS: NOREPINEPHRINE 8 MG/D5W 250 ML 250 ML IV SCH (11:37)
[2021-04-23] MEDS: CENTRAL TPN FORMULA 1 BAG IV SCH (20:16)
[2021-04-24] VITALS (26 sets, daily range): BP systolic 86–140; BP diastolic 45–69
[2021-04-24] MEDS: NOREPINEPHRINE 8 MG/D5W 250 ML 250 ML IV SCH (00:47)
[2021-04-24] MEDS: TRIMETHOPRIM/SULFAMETHOXAZOLE 160 MG in DEXTROSE 5% 250ML 250 ML IV SCH (06:00)
[2021-04-24 06:27] LABS: BASOPHILS # (AUTO) 0.1 (0.0-0.1); BASOPHILS % 0.3 % (0.0-1.0); EOSINOPHILS # (AUTO) 0.2 (0.0-0.4); EOSINOPHILS % 0.5 % (0.0-6.0); HEMOGLOBIN 7.1 g/dL (12.0-16.0); LYMPHOCYTES # (AUTO) 1.2 (1.0-3.2); LYMPHOCYTES % 3.3 % (18.0-39.1); MEAN CORPUSCULAR HGB CONC 34.3 g/dL (31-35); MEAN CORPUSCULAR VOLUME 90.4 fL (81-99); MONOCYTES # (AUTO) 1.7 (0.2-0.8); MONOCYTES % 4.8 % (4.4-11.3); NEUTROPHILS # (AUTO) 24.5 (2.1-6.9); NEUTROPHILS % 69.3 % (38.7-80.0); PLATELET COUNT 206 x10e3/uL (140-360); RED BLOOD COUNT 2.29 x10e6/uL (3.6-5.1); RED CELL DISTRIBUTION WIDTH 22.7 % (11.7-14.4)
[2021-04-24 06:40] LABS: HEMATOCRIT 20.7 % (34.2-44.1)
[2021-04-24 06:53] LABS: ALBUMIN/GLOBULIN RATIO 0.2 (0.8-2.0); ANION GAP 18.1 mmol/L (8-16); CALCIUM 9.1 mg/dL (8.4-10.2); CREATININE, SERUM 1.19 mg/dL (0.57-1.11); POTASSIUM 4.1 mmol/L (3.5-5.1)
[2021-04-24] MEDS: COLLAGENASE 5 GM TUBE TP SCH (08:00)
[2021-04-24] MEDS: LEVETIRACETAM 500MG/5ML VIAL 500 MG in SODIUM CHLORIDE 0.9% 100 ML 100 ML IV SCH (08:00)
[2021-04-24] MEDS: BALSAM PERU/CASTOR OIL 60 GM OINT...G. TP SCH (08:00)
[2021-04-24] MEDS: PANTOPRAZOLE 40 MG 10ML VIAL IV SCH ×2 (08:00→16:00)
[2021-04-24] MEDS ORDERED: VANCOMYCIN 1GM/NS 250 ML 250 ML IV ONE (09:00)
[2021-04-24] MEDS: MEROPENEM 500MG/ NS 50ML 50 ML IV SCH ×2 (09:04→21:22)
[2021-04-24 10:12] LABS: BAND NEUTROPHILS % (MANUAL) 9 %; LYMPHOCYTES % (MANUAL) 9 % (19-48); MONOCYTES % (MANUAL) 5 % (3.4-9.0); MYELOCYTES % (MANUAL) 16 % (0-0); NEUTROPHILS % (MANUAL) 60 % (40-74)
[2021-04-24 10:13] LABS: POLYCHROMASIA FEW; TARGET CELLS FEW
[2021-04-24 10:14] LABS: ANISOCYTOSIS MODERATE
[2021-04-24 10:15] LABS: TEAR DROP CELLS FEW
[2021-04-24 10:16] LABS: PLATELET ESTIMATE ADEQUATE; PLATELET MORPHOLOGY COMMENT FEW GIANT
[2021-04-24 10:17] LABS: RBC MORPHOLOGY COMMENT ABNORMAL; TOXIC GRANULATION SLIGHT
[2021-04-24] MEDS ORDERED: HEPARIN SOD (PORCINE) 1000 UNIT/ML SDV IV PRN (11:15)
[2021-04-24] MEDS: FENTANYL 2000MCG/NS 250 250 ML IV SCH (11:37)
[2021-04-24] MEDS: FLUCONAZOLE 200 MG/100 ML 100 ML IV SCH (14:17)
[2021-04-24 16:36] LABS: ABG PCO2 38 mmHg (35-45); ABG PH 7.41 (7.35-7.45); ABG PO2 52 mmHg (80-105)
[2021-04-24 16:37] LABS: ABG HCO3 24 mmol/L (22-26); ABG TCO2 25
[2021-04-24] MEDS: CENTRAL TPN FORMULA 1 BAG IV SCH (20:24)
[2021-04-25] VITALS (16 sets, daily range): BP systolic 100–128; BP diastolic 50–65
[2021-04-25 06:03] LABS: BASOPHILS % 0.1 % (0.0-1.0); EOSINOPHILS # (AUTO) 0.1 (0.0-0.4); EOSINOPHILS % 0.4 % (0.0-6.0); LYMPHOCYTES # (AUTO) 0.7 (1.0-3.2); LYMPHOCYTES % 2.2 % (18.0-39.1); MEAN CORPUSCULAR HEMOGLOBIN 31.1 pg (28-32); MEAN CORPUSCULAR HGB CONC 34.3 g/dL (31-35); MEAN CORPUSCULAR VOLUME 90.4 fL (81-99); MONOCYTES # (AUTO) 1.5 (0.2-0.8); MONOCYTES % 4.8 % (4.4-11.3); NEUTROPHILS # (AUTO) 23.1 (2.1-6.9); NEUTROPHILS % 72.1 % (38.7-80.0); PLATELET COUNT 176 x10e3/uL (140-360); RED BLOOD COUNT 2.19 x10e6/uL (3.6-5.1); RED CELL DISTRIBUTION WIDTH 23.9 % (11.7-14.4)
[2021-04-25] MEDS: FENTANYL 2000MCG/NS 250 250 ML IV SCH (06:09)
[2021-04-25 06:23] LABS: ALANINE AMINOTRANSFERASE 89 IU/L (0-55); ALBUMIN 1.3 g/dL (3.5-5.0); ALBUMIN/GLOBULIN RATIO 0.3 (0.8-2.0); ALKALINE PHOSPHATASE 334 IU/L (40-150); ANION GAP 16.8 mmol/L (8-16); BLOOD UREA NITROGEN 62 mg/dL (7-26); BUN/CREATININE RATIO 82 (6-25); CALCIUM 8.7 mg/dL (8.4-10.2); CARBON DIOXIDE 20 mmol/L (22-29); CHLORIDE 98 mmol/L (98-107); CREATININE, SERUM 0.76 mg/dL (0.57-1.11); EST GLOMERULAR FILTRATION RATE > 60 ML/MIN (60-); GLUCOSE 97 mg/dL (74-118); POTASSIUM 3.8 mmol/L (3.5-5.1); SODIUM 131 mmol/L (136-145)
[2021-04-25 06:36] LABS: HEMATOCRIT 19.8 % (34.2-44.1); HEMOGLOBIN 6.8 g/dL (12.0-16.0); MAGNESIUM 2.2 MG/DL (1.3-2.1); PHOSPHORUS 2.7 MG/DL (2.3-4.7)
[2021-04-25] MEDS: COLLAGENASE 5 GM TUBE TP SCH (07:21)
[2021-04-25] MEDS: BALSAM PERU/CASTOR OIL 60 GM OINT...G. TP SCH ×2 (07:22)
[2021-04-25] MEDS: NOREPINEPHRINE 8 MG/D5W 250 ML 250 ML IV SCH (07:23)
[2021-04-25] MEDS: LEVETIRACETAM 500MG/5ML VIAL 500 MG in SODIUM CHLORIDE 0.9% 100 ML 100 ML IV SCH (08:44)
[2021-04-25] MEDS: MEROPENEM 500MG/ NS 50ML 50 ML IV SCH ×2 (08:44→20:31)
[2021-04-25] MEDS: PANTOPRAZOLE 40 MG 10ML VIAL IV SCH ×2 (08:45→16:12)
[2021-04-25] MEDS ORDERED: SODIUM CHLORIDE 0.9% 250ML 250 ML IV ONE (09:15)
[2021-04-25 09:50] LABS: ANISOCYTOSIS MODERATE; BAND NEUTROPHILS % (MANUAL) 5 %; EOSINOPHILS % (MANUAL) 1 % (0-7); LYMPHOCYTES % (MANUAL) 1 % (19-48); MONOCYTES % (MANUAL) 5 % (3.4-9.0); MYELOCYTES % (MANUAL) 18 % (0-0); NEUTROPHILS % (MANUAL) 70 % (40-74)
[2021-04-25 09:51] LABS: PLATELET ESTIMATE ADEQUATE; RBC MORPHOLOGY COMMENT ABNORMAL; TARGET CELLS FEW
[2021-04-25 09:52] LABS: PLATELET MORPHOLOGY COMMENT FEW LARGE
[2021-04-25] MEDS: FLUCONAZOLE 200 MG/100 ML 100 ML IV SCH (14:25)
[2021-04-25] MEDS: EPOETIN ALFA-EPBX 10,000 UNIT/ML VIAL SC SCH (16:12)
[2021-04-25] MEDS ORDERED: CENTRAL TPN FORMULA 1 BAG IV SCH (20:00)
[2021-04-26] VITALS (15 sets, daily range): BP systolic 73–112; BP diastolic 33–65
[2021-04-26] MEDS: FENTANYL 2000MCG/NS 250 250 ML IV SCH ×2 (01:25→18:47)
[2021-04-26 04:47] LABS: BASOPHILS # (AUTO) 0.2 (0.0-0.1); BASOPHILS % 0.6 % (0.0-1.0); EOSINOPHILS # (AUTO) 0.1 (0.0-0.4); EOSINOPHILS % 0.4 % (0.0-6.0); HEMOGLOBIN 8.1 g/dL (12.0-16.0); LYMPHOCYTES # (AUTO) 0.7 (1.0-3.2); LYMPHOCYTES % 2.5 % (18.0-39.1); MEAN CORPUSCULAR HEMOGLOBIN 30.7 pg (28-32); MEAN CORPUSCULAR HGB CONC 33.8 g/dL (31-35); MEAN CORPUSCULAR VOLUME 90.9 fL (81-99); MONOCYTES # (AUTO) 1.4 (0.2-0.8); NEUTROPHILS # (AUTO) 20.2 (2.1-6.9); PLATELET COUNT 160 x10e3/uL (140-360); RED BLOOD COUNT 2.64 x10e6/uL (3.6-5.1); RED CELL DISTRIBUTION WIDTH 22.2 % (11.7-14.4)
[2021-04-26 05:10] LABS: ALBUMIN 1.3 g/dL (3.5-5.0); ALBUMIN/GLOBULIN RATIO 0.3 (0.8-2.0); ANION GAP 18.5 mmol/L (8-16); CALCIUM 8.6 mg/dL (8.4-10.2); CREATININE, SERUM 1.05 mg/dL (0.57-1.11); POTASSIUM 4.5 mmol/L (3.5-5.1)
[2021-04-26 06:54] LABS: BAND NEUTROPHILS % (MANUAL) 9 %; EOSINOPHILS % (MANUAL) 1 % (0-7); LYMPHOCYTES % (MANUAL) 8 % (19-48); MONOCYTES % (MANUAL) 3 % (3.4-9.0); MYELOCYTES % (MANUAL) 13 % (0-0); NEUTROPHILS % (MANUAL) 66 % (40-74)
[2021-04-26 06:55] LABS: ANISOCYTOSIS MODERATE; PLATELET ESTIMATE ADEQUATE; TARGET CELLS FEW
[2021-04-26 06:56] LABS: POLYCHROMASIA FEW; RBC MORPHOLOGY COMMENT ABNORMAL
[2021-04-26] MEDS: BALSAM PERU/CASTOR OIL 60 GM OINT...G. TP SCH ×2 (08:35)
[2021-04-26] MEDS: MEROPENEM 500MG/ NS 50ML 50 ML IV SCH ×2 (08:35→21:34)
[2021-04-26] MEDS: LEVETIRACETAM 500MG/5ML VIAL 500 MG in SODIUM CHLORIDE 0.9% 100 ML 100 ML IV SCH (08:35)
[2021-04-26] MEDS: COLLAGENASE 5 GM TUBE TP SCH (08:35)
[2021-04-26] MEDS: PANTOPRAZOLE 40 MG 10ML VIAL IV SCH ×2 (08:35→16:14)
[2021-04-26] MEDS: NOREPINEPHRINE 8 MG/D5W 250 ML 250 ML IV SCH (13:30)
[2021-04-26] MEDS: FLUCONAZOLE 200 MG/100 ML 100 ML IV SCH (14:30)
[2021-04-26] MEDS ORDERED: CENTRAL TPN FORMULA 1 BAG IV SCH (20:00)
[2021-04-26] MEDS ORDERED: SODIUM CHLORIDE 0.9% 100 ML ONE (21:18)
[2021-04-27] VITALS (24 sets, daily range): BP systolic 87–132; BP diastolic 41–91
[2021-04-27] MEDS: NOREPINEPHRINE 8 MG/D5W 250 ML 250 ML IV SCH (06:12)
[2021-04-27] MEDS: FENTANYL 2000MCG/NS 250 250 ML IV SCH ×2 (06:14→19:10)
[2021-04-27] MEDS: MEROPENEM 500MG/ NS 50ML 50 ML IV SCH ×2 (07:35→21:04)
[2021-04-27 07:37] LABS: BASOPHILS % 0.1 % (0.0-1.0); EOSINOPHILS # (AUTO) 0.1 (0.0-0.4); EOSINOPHILS % 0.3 % (0.0-6.0); HEMATOCRIT 24.9 % (34.2-44.1); HEMOGLOBIN 8.2 g/dL (12.0-16.0); LYMPHOCYTES # (AUTO) 1.1 (1.0-3.2); LYMPHOCYTES % 2.9 % (18.0-39.1); MEAN CORPUSCULAR HEMOGLOBIN 30.7 pg (28-32); MEAN CORPUSCULAR HGB CONC 32.9 g/dL (31-35); MEAN CORPUSCULAR VOLUME 93.3 fL (81-99); MONOCYTES # (AUTO) 1.5 (0.2-0.8); MONOCYTES % 3.9 % (4.4-11.3); NEUTROPHILS # (AUTO) 26.5 (2.1-6.9); NEUTROPHILS % 68.3 % (38.7-80.0); PLATELET COUNT 177 x10e3/uL (140-360); RED BLOOD COUNT 2.67 x10e6/uL (3.6-5.1); RED CELL DISTRIBUTION WIDTH 22.8 % (11.7-14.4)
[2021-04-27 08:27] LABS: ANION GAP 22.2 mmol/L (8-16); CALCIUM 8.4 mg/dL (8.4-10.2); CREATININE, SERUM 1.11 mg/dL (0.57-1.11)
[2021-04-27 08:31] LABS: POTASSIUM 5.2 mmol/L (3.5-5.1)
[2021-04-27 08:59] LABS: ANISOCYTOSIS MODERATE; BAND NEUTROPHILS % (MANUAL) 8 %; LYMPHOCYTES % (MANUAL) 8 % (19-48); MONOCYTES % (MANUAL) 2 % (3.4-9.0); MYELOCYTES % (MANUAL) 10 % (0-0); NEUTROPHILS % (MANUAL) 72 % (40-74); TARGET CELLS FEW
[2021-04-27 09:00] LABS: PLATELET ESTIMATE ADEQUATE; PLATELET MORPHOLOGY COMMENT NORMAL; RBC MORPHOLOGY COMMENT ABNORMAL
[2021-04-27] MEDS: PANTOPRAZOLE 40 MG 10ML VIAL IV SCH ×2 (09:05→16:32)
[2021-04-27] MEDS: BALSAM PERU/CASTOR OIL 60 GM OINT...G. TP SCH ×2 (09:05→09:06)
[2021-04-27] MEDS: LEVETIRACETAM 500MG/5ML VIAL 500 MG in SODIUM CHLORIDE 0.9% 100 ML 100 ML IV SCH (09:05)
[2021-04-27] MEDS: COLLAGENASE 5 GM TUBE TP SCH (09:05)
[2021-04-27] MEDS ORDERED: SODIUM CHLORIDE 0.9% 1000ML 2,000 ML IV PRN (10:00)
[2021-04-27] MEDS ORDERED: ALBUMIN 25% 25GM 100ML 0.25 GM/ML BTL IV PRN (10:00)
[2021-04-27] MEDS ORDERED: HEPARIN SOD (PORCINE) 1000 UNIT/ML SDV IV PRN (10:00)
[2021-04-27] MEDS ORDERED: SODIUM CHLORIDE 0.9% 250ML 500 ML IV PRN (10:00)
[2021-04-27] MEDS ORDERED: VANCOMYCIN 1GM/NS 250 ML 250 ML IV ONE (12:30)
[2021-04-27] MEDS: FLUCONAZOLE 200 MG/100 ML 100 ML IV SCH (15:17)
[2021-04-27] MEDS: EPOETIN ALFA-EPBX 10,000 UNIT/ML VIAL SC SCH (16:32)
[2021-04-27] MEDS ORDERED: CENTRAL TPN FORMULA 1 BAG IV SCH (20:00)
[2021-04-28] VITALS (25 sets, daily range): BP systolic 88–117; BP diastolic 44–72
[2021-04-28 04:24] LABS: BASOPHILS # (AUTO) 0.2 (0.0-0.1); BASOPHILS % 0.5 % (0.0-1.0); EOSINOPHILS # (AUTO) 0.1 (0.0-0.4); EOSINOPHILS % 0.3 % (0.0-6.0); HEMATOCRIT 24.1 % (34.2-44.1); HEMOGLOBIN 8.1 g/dL (12.0-16.0); LYMPHOCYTES # (AUTO) 0.6 (1.0-3.2); LYMPHOCYTES % 1.9 % (18.0-39.1); MEAN CORPUSCULAR HEMOGLOBIN 30.9 pg (28-32); MEAN CORPUSCULAR HGB CONC 33.6 g/dL (31-35); MONOCYTES % 6.5 % (4.4-11.3); NEUTROPHILS # (AUTO) 22.5 (2.1-6.9); NEUTROPHILS % 72.3 % (38.7-80.0); PLATELET COUNT 136 x10e3/uL (140-360); RED BLOOD COUNT 2.62 x10e6/uL (3.6-5.1); RED CELL DISTRIBUTION WIDTH 23.8 % (11.7-14.4)
[2021-04-28 04:38] LABS: ANION GAP 14.5 mmol/L (8-16); BLOOD UREA NITROGEN 58 mg/dL (7-26); BUN/CREATININE RATIO 73 (6-25); CARBON DIOXIDE 23 mmol/L (22-29); CHLORIDE 101 mmol/L (98-107); CREATININE, SERUM 0.79 mg/dL (0.57-1.11); EST GLOMERULAR FILTRATION RATE > 60 ML/MIN (60-); GLUCOSE 89 mg/dL (74-118); POTASSIUM 3.5 mmol/L (3.5-5.1); SODIUM 135 mmol/L (136-145)
[2021-04-28 06:16] LABS: LYMPHOCYTES % (MANUAL) 4 % (19-48); MONOCYTES % (MANUAL) 7 % (3.4-9.0); MYELOCYTES % (MANUAL) 14 % (0-0); NEUTROPHILS % (MANUAL) 73 % (40-74)
[2021-04-28 06:17] LABS: ANISOCYTOSIS SLIG; HYPOCHROMASIA MODE; PLATELET ESTIMATE SLIGHTLY DECREASED; PLATELET MORPHOLOGY COMMENT FEW LARGE; POLYCHROMASIA FEW; RBC MORPHOLOGY COMMENT ABNORMAL
[2021-04-28] MEDS: PANTOPRAZOLE 40 MG 10ML VIAL IV SCH ×2 (08:13→16:23)
[2021-04-28] MEDS: MEROPENEM 500MG/ NS 50ML 50 ML IV SCH ×2 (08:13→19:51)
[2021-04-28] MEDS: BALSAM PERU/CASTOR OIL 60 GM OINT...G. TP SCH ×2 (08:13→08:45)
[2021-04-28] MEDS: COLLAGENASE 5 GM TUBE TP SCH (08:13)
[2021-04-28] MEDS: LEVETIRACETAM 500MG/5ML VIAL 500 MG in SODIUM CHLORIDE 0.9% 100 ML 100 ML IV SCH (08:45)
[2021-04-28] MEDS: FENTANYL 2000MCG/NS 250 250 ML IV SCH ×2 (08:46→22:36)
[2021-04-28] MEDS: FLUCONAZOLE 200 MG/100 ML 100 ML IV SCH (13:37)
[2021-04-28] MEDS: NOREPINEPHRINE 8 MG/D5W 250 ML 250 ML IV SCH (15:39)
[2021-04-28] MEDS ORDERED: CENTRAL TPN FORMULA 1 BAG IV SCH (20:00)
[2021-04-29] VITALS (26 sets, daily range): BP systolic 95–133; BP diastolic 45–61
[2021-04-29 04:26] LABS: BASOPHILS # (AUTO) 0.2 (0.0-0.1); BASOPHILS % 0.7 % (0.0-1.0); EOSINOPHILS # (AUTO) 0.1 (0.0-0.4); EOSINOPHILS % 0.4 % (0.0-6.0); HEMATOCRIT 23.5 % (34.2-44.1); HEMOGLOBIN 7.9 g/dL (12.0-16.0); LYMPHOCYTES # (AUTO) 0.8 (1.0-3.2); LYMPHOCYTES % 2.8 % (18.0-39.1); MEAN CORPUSCULAR HEMOGLOBIN 31.2 pg (28-32); MEAN CORPUSCULAR HGB CONC 33.6 g/dL (31-35); MEAN CORPUSCULAR VOLUME 92.9 fL (81-99); MONOCYTES # (AUTO) 1.6 (0.2-0.8); MONOCYTES % 5.7 % (4.4-11.3); NEUTROPHILS # (AUTO) 18.8 (2.1-6.9); NEUTROPHILS % 69.4 % (38.7-80.0); PLATELET COUNT 140 x10e3/uL (140-360); RED BLOOD COUNT 2.53 x10e6/uL (3.6-5.1); RED CELL DISTRIBUTION WIDTH 24.3 % (11.7-14.4)
[2021-04-29 04:43] LABS: ALANINE AMINOTRANSFERASE 70 IU/L (0-55); ALBUMIN 1.1 g/dL (3.5-5.0); ALBUMIN/GLOBULIN RATIO 0.2 (0.8-2.0); ALKALINE PHOSPHATASE 405 IU/L (40-150); ANION GAP 16.7 mmol/L (8-16); BLOOD UREA NITROGEN 73 mg/dL (7-26); BUN/CREATININE RATIO 81 (6-25); CALCIUM 8.3 mg/dL (8.4-10.2); CARBON DIOXIDE 21 mmol/L (22-29); CHLORIDE 98 mmol/L (98-107); EST GLOMERULAR FILTRATION RATE > 60 ML/MIN (60-); GLUCOSE 113 mg/dL (74-118); POTASSIUM 3.7 mmol/L (3.5-5.1); SODIUM 132 mmol/L (136-145)
[2021-04-29] MEDS: MEROPENEM 500MG/ NS 50ML 50 ML IV SCH ×2 (08:09→21:32)
[2021-04-29] MEDS: LEVETIRACETAM 500MG/5ML VIAL 500 MG in SODIUM CHLORIDE 0.9% 100 ML 100 ML IV SCH (09:09)
[2021-04-29] MEDS: COLLAGENASE 5 GM TUBE TP SCH (09:09)
[2021-04-29] MEDS: PANTOPRAZOLE 40 MG 10ML VIAL IV SCH ×2 (09:09→16:05)
[2021-04-29] MEDS: BALSAM PERU/CASTOR OIL 60 GM OINT...G. TP SCH ×2 (09:09→09:10)
[2021-04-29] MEDS: NOREPINEPHRINE 8 MG/D5W 250 ML 250 ML IV SCH (09:10)
[2021-04-29] MEDS: FENTANYL 2000MCG/NS 250 250 ML IV SCH (12:20)
[2021-04-29] MEDS: FLUCONAZOLE 200 MG/100 ML 100 ML IV SCH (14:03)
[2021-04-29 14:36] LABS: ABG PCO2 39 mmHg (35-45); ABG PH 7.37 (7.35-7.45); ABG PO2 113 mmHg (80-105)
[2021-04-29 14:37] LABS: ABG HCO3 23 mmol/L (22-26); ABG TCO2 24
[2021-04-29] MEDS ORDERED: CENTRAL TPN FORMULA 1 BAG IV SCH (20:00)
[2021-04-30] VITALS (10 sets, daily range): BP systolic 93–112; BP diastolic 47–61
[2021-04-30] MEDS: FENTANYL 2000MCG/NS 250 250 ML IV SCH (04:00)
[2021-04-30 05:46] LABS: BASOPHILS % 0.1 % (0.0-1.0); EOSINOPHILS # (AUTO) 0.1 (0.0-0.4); EOSINOPHILS % 0.4 % (0.0-6.0); HEMATOCRIT 23.2 % (34.2-44.1); HEMOGLOBIN 7.8 g/dL (12.0-16.0); LYMPHOCYTES # (AUTO) 0.8 (1.0-3.2); LYMPHOCYTES % 3.1 % (18.0-39.1); MEAN CORPUSCULAR HEMOGLOBIN 31.2 pg (28-32); MEAN CORPUSCULAR HGB CONC 33.6 g/dL (31-35); MEAN CORPUSCULAR VOLUME 92.8 fL (81-99); MONOCYTES # (AUTO) 1.2 (0.2-0.8); MONOCYTES % 4.6 % (4.4-11.3); NEUTROPHILS # (AUTO) 19.8 (2.1-6.9); NEUTROPHILS % 74.8 % (38.7-80.0); PLATELET COUNT 123 x10e3/uL (140-360); RED CELL DISTRIBUTION WIDTH 24.6 % (11.7-14.4)
[2021-04-30 06:08] LABS: ALBUMIN/GLOBULIN RATIO 0.2 (0.8-2.0); ANION GAP 18.7 mmol/L (8-16); CALCIUM 8.6 mg/dL (8.4-10.2); CREATININE, SERUM 1.09 mg/dL (0.57-1.11); POTASSIUM 3.7 mmol/L (3.5-5.1)
[2021-04-30 06:11] LABS: MAGNESIUM 2.6 MG/DL (1.3-2.1); PHOSPHORUS 4.2 MG/DL (2.3-4.7)
[2021-04-30 06:34] LABS: ANISOCYTOSIS MODERATE; BAND NEUTROPHILS % (MANUAL) 4 %; LYMPHOCYTES % (MANUAL) 5 % (19-48); MONOCYTES % (MANUAL) 4 % (3.4-9.0); MYELOCYTES % (MANUAL) 8 % (0-0); NEUTROPHILS % (MANUAL) 79 % (40-74); NUCLEATED RED BLOOD CELLS 1; PLATELET ESTIMATE SLIGHTLY DECREASED; PLATELET MORPHOLOGY COMMENT NORMAL
[2021-04-30 06:35] LABS: HYPOCHROMASIA SLIGHT; TARGET CELLS FEW
[2021-04-30 06:36] LABS: RBC MORPHOLOGY COMMENT ABNORMAL
[2021-04-30] MEDS: NOREPINEPHRINE 8 MG/D5W 250 ML 250 ML IV SCH (07:14)
[2021-04-30] MEDS: MEROPENEM 500MG/ NS 50ML 50 ML IV SCH (07:33)
[2021-04-30] MEDS: BALSAM PERU/CASTOR OIL 60 GM OINT...G. TP SCH ×2 (08:07→08:08)
[2021-04-30] MEDS: PANTOPRAZOLE 40 MG 10ML VIAL IV SCH ×2 (08:07→16:11)
[2021-04-30] MEDS: COLLAGENASE 5 GM TUBE TP SCH (08:07)
[2021-04-30] MEDS: LEVETIRACETAM 500MG/5ML VIAL 500 MG in SODIUM CHLORIDE 0.9% 100 ML 100 ML IV SCH (08:07)
[2021-04-30] MEDS ORDERED: MORPHINE SULFATE INJ 2 MG/ML SYR IV ONE (11:58)
[2021-04-30] MEDS ORDERED: LORAZEPAM INJ 2 MG/ML VIAL IV ONE (12:00)
[2021-04-30] MEDS ORDERED: MORPHINE SULFATE INJ 4 MG/ML INJ 1ML IV PRN (12:30)
[2021-04-30] MEDS ORDERED: LORAZEPAM INJ 2 MG/ML VIAL IV PRN (12:30)
[2021-04-30] MEDS ORDERED: MORPHINE SULFATE INJ 2 MG/ML SYR IV PRN (12:45)
[2021-04-30] MEDS: FLUCONAZOLE 200 MG/100 ML 100 ML IV SCH (13:51)
[2021-04-30] MEDS: EPOETIN ALFA-EPBX 10,000 UNIT/ML VIAL SC SCH (16:11)
== END 2021-04-30 18:01 | disposition expired | DRG 3 ==
LOC: ER 09:32 → UNDOADMIN 12:24 → ERHOLD 12:24 → OR 14:02 → ICU 17:00 → OR 17:02 → ICU 17:02
PROVIDERS: ADMIT Internal Medicine; ATTEND Internal Medicine
PROC: 0DJ00ZZ Inspection of Upper Intestinal Tract, Open Approach (ICD-10-PCS; 2021-03-24)
PROC: 0DU907Z Supplement Duodenum with Autologous Tissue Substitute, Open Approach (ICD-10-PCS; 2021-03-24)
PROC: 02HV33Z Insertion of Infusion Device into Superior Vena Cava, Percutaneous Approach (ICD-10-PCS; 2021-03-24)
PROC: B548ZZA Ultrasonography of Superior Vena Cava, Guidance (ICD-10-PCS; 2021-03-24)
PROC: 30243N1 Transfusion of Nonautologous Red Blood Cells into Central Vein, Percutaneous Approach (ICD-10-PCS; 2021-03-24)
PROC: 0BH17EZ Insertion of Endotracheal Airway into Trachea, Via Natural or Artificial Opening (ICD-10-PCS; principal; 2021-03-25)
PROC: 5A1955Z Respiratory Ventilation, Greater than 96 Consecutive Hours (ICD-10-PCS; 2021-03-25)
PROC: 3E0436Z Introduction of Nutritional Substance into Central Vein, Percutaneous Approach (ICD-10-PCS; 2021-03-25)
PROC: 3E043XZ Introduction of Vasopressor into Central Vein, Percutaneous Approach (ICD-10-PCS; 2021-03-25)
PROC: 0D160ZA Bypass Stomach to Jejunum, Open Approach (ICD-10-PCS; 2021-03-30)
PROC: 0D9900Z Drainage of Duodenum with Drainage Device, Open Approach (ICD-10-PCS; 2021-03-30)
PROC: 0DQ70ZZ Repair Stomach, Pylorus, Open Approach (ICD-10-PCS; 2021-03-30)
PROC: 5A12012 Performance of Cardiac Output, Single, Manual (ICD-10-PCS; 2021-03-30)
PROC: 02HV33Z Insertion of Infusion Device into Superior Vena Cava, Percutaneous Approach (ICD-10-PCS; 2021-04-03)
PROC: B548ZZA Ultrasonography of Superior Vena Cava, Guidance (ICD-10-PCS; 2021-04-03)
PROC: 0BH17EZ Insertion of Endotracheal Airway into Trachea, Via Natural or Artificial Opening (ICD-10-PCS; 2021-04-06)
PROC: 5A1955Z Respiratory Ventilation, Greater than 96 Consecutive Hours (ICD-10-PCS; 2021-04-06)
PROC: 02HV33Z Insertion of Infusion Device into Superior Vena Cava, Percutaneous Approach (ICD-10-PCS; 2021-04-07)
PROC: B548ZZA Ultrasonography of Superior Vena Cava, Guidance (ICD-10-PCS; 2021-04-07)
PROC: 02HV33Z Insertion of Infusion Device into Superior Vena Cava, Percutaneous Approach (ICD-10-PCS; 2021-04-07)
PROC: B548ZZA Ultrasonography of Superior Vena Cava, Guidance (ICD-10-PCS; 2021-04-07)
PROC: 5A1D70Z Performance of Urinary Filtration, Intermittent, Less than 6 Hours Per Day (ICD-10-PCS; 2021-04-07)
PROC: 5A1D70Z Performance of Urinary Filtration, Intermittent, Less than 6 Hours Per Day (ICD-10-PCS; 2021-04-08)
PROC: 5A1D70Z Performance of Urinary Filtration, Intermittent, Less than 6 Hours Per Day (ICD-10-PCS; 2021-04-09)
PROC: 0B928ZZ Drainage of Carina, Via Natural or Artificial Opening Endoscopic (ICD-10-PCS; 2021-04-10)
PROC: 0B9G8ZZ Drainage of Left Upper Lung Lobe, Via Natural or Artificial Opening Endoscopic (ICD-10-PCS; 2021-04-10)
PROC: 0B9H8ZZ Drainage of Lung Lingula, Via Natural or Artificial Opening Endoscopic (ICD-10-PCS; 2021-04-10)
PROC: 0B9J8ZZ Drainage of Left Lower Lung Lobe, Via Natural or Artificial Opening Endoscopic (ICD-10-PCS; 2021-04-10)
PROC: 5A1D70Z Performance of Urinary Filtration, Intermittent, Less than 6 Hours Per Day (ICD-10-PCS; 2021-04-10)
PROC: 5A1D70Z Performance of Urinary Filtration, Intermittent, Less than 6 Hours Per Day (ICD-10-PCS; 2021-04-11)
PROC: 5A1D70Z Performance of Urinary Filtration, Intermittent, Less than 6 Hours Per Day (ICD-10-PCS; 2021-04-14)
PROC: 0B110F4 Bypass Trachea to Cutaneous with Tracheostomy Device, Open Approach (ICD-10-PCS; 2021-04-16)
PROC: 5A1D70Z Performance of Urinary Filtration, Intermittent, Less than 6 Hours Per Day (ICD-10-PCS; 2021-04-16)
PROC: 5A1D70Z Performance of Urinary Filtration, Intermittent, Less than 6 Hours Per Day (ICD-10-PCS; 2021-04-18)
PROC: 5A1D70Z Performance of Urinary Filtration, Intermittent, Less than 6 Hours Per Day (ICD-10-PCS; 2021-04-19)
PROC: 5A1D70Z Performance of Urinary Filtration, Intermittent, Less than 6 Hours Per Day (ICD-10-PCS; 2021-04-21)
PROC: 5A1D70Z Performance of Urinary Filtration, Intermittent, Less than 6 Hours Per Day (ICD-10-PCS; 2021-04-24)
PROC: 5A1D70Z Performance of Urinary Filtration, Intermittent, Less than 6 Hours Per Day (ICD-10-PCS; 2021-04-25)
PROC: 5A1D70Z Performance of Urinary Filtration, Intermittent, Less than 6 Hours Per Day (ICD-10-PCS; 2021-04-27)
DX: A41.01 Sepsis due to Methicillin susceptible Staphylococcus aureus (principal); K26.1 Acute duodenal ulcer with perforation; E43 Unspecified severe protein-calorie malnutrition; J96.01 Acute respiratory failure with hypoxia; R65.21 Severe sepsis with septic shock; R40.20 Unspecified coma; G93.41 Metabolic encephalopathy; K65.0 Generalized (acute) peritonitis; K65.3 Choleperitonitis; J96.02 Acute respiratory failure with hypercapnia; N17.0 Acute kidney failure with tubular necrosis; J15.8 Pneumonia due to other specified bacteria; K72.00 Acute and subacute hepatic failure without coma; Z68.1 Body mass index [BMI] 19.9 or less, adult; N39.0 Urinary tract infection, site not specified; D84.821 Immunodeficiency due to drugs; K31.6 Fistula of stomach and duodenum; J98.11 Atelectasis; Z99.11 Dependence on respirator [ventilator] status; T85.638A Leakage of other specified internal prosthetic devices, implants and grafts, initial encounter; D62 Acute posthemorrhagic anemia; G72.81 Critical illness myopathy; R19.8 Other specified symptoms and signs involving the digestive system and abdomen; E83.51 Hypocalcemia; I10 Essential (primary) hypertension; Z90.49 Acquired absence of other specified parts of digestive tract; Z88.5 Allergy status to narcotic agent; E16.2 Hypoglycemia, unspecified; M32.9 Systemic lupus erythematosus, unspecified; Z20.822 Contact with and (suspected) exposure to COVID-19; K66.0 Peritoneal adhesions (postprocedural) (postinfection); E87.6 Hypokalemia; E88.09 Other disorders of plasma-protein metabolism, not elsewhere classified; D47.3 Essential (hemorrhagic) thrombocythemia; G89.4 Chronic pain syndrome; D63.8 Anemia in other chronic diseases classified elsewhere; Z79.1 Long term (current) use of non-steroidal anti-inflammatories (NSAID); R73.9 Hyperglycemia, unspecified; I48.0 Paroxysmal atrial fibrillation; R53.81 Other malaise; I46.9 Cardiac arrest, cause unspecified; R79.89 Other specified abnormal findings of blood chemistry; E83.42 Hypomagnesemia; K76.89 Other specified diseases of liver; E87.70 Fluid overload, unspecified; R00.1 Bradycardia, unspecified; R13.10 Dysphagia, unspecified; Z66 Do not resuscitate
CPT/HCPCS: 31500; 31622; 36415; 36555; 36556; 36569; 36600; 70450; 71045; 74177; 74470; 76604; 76705; 76937; 80048; 80053; 80202; 81001; 82150; 82550; 82553; 82805; 82948; 83540; 83605; 83615; 83690; 83735; 83880; 84100; 84132; 84443; 84466; 84484; 85014; 85018; 85025; 85610; 85730; 86705; 86706; 86850; 86900; 86920; 87040; 87071; 87075; 87086; 87186; 87205; 87335; 87340; 90962; 92950; 93005; 93306; 93880; 94002; 94003; 94660; 95812; 95819; 96372; 97139; 99251; 99284; C1752; J0171; J0330; J0610; J0692; J1450; J1644; J1720; J1817; J1940; J2001; J2060; J2185; J2250; J2270; J2310; J2370; J2543; J3010; J3370; J3475; J3480; J7030; J7040; J7050; J7060; J7070; J7121; J7799; P9016; P9047; Q9967; U0002